=== PATIENT | male | born 1960 | race Caucasian/White ===

== ENCOUNTER 2016-12-25 14:45 | Inpatient (IN) ==
[2016-12-25] MEDS ORDERED: ONDANSETRON 4 MG/2 ML VIAL IV STA (15:49)
[2016-12-25] MEDS ORDERED: SODIUM CHLORIDE 0.9% 1,000 ML IV STA ×2 (15:49→17:17)
[2016-12-25 16:18] LABS: Basophils % 0.6 % (0.0-0.8); Eosinophils % 0.3 % (0.00-10.9); Hematocrit 40.3 VOL% (42.0-52.0); Hemoglobin 14.2 GM/DL (14.0-18.0); Immature Granulocytes % 0.8 %; Immature Granulocytes Absolute 0.03 #; Lymphocytes # 0.6 10*3/uL (1.4-4.0); Lymphocytes % 16.6 % (21.2-54.2); Mean Corpuscular HGB Conc 35.2 GM/DL (32-36); Mean Corpuscular Hemoglobin 34 PG (27-34); Mean Corpuscular Volume 95.5 FL (87-102); Mean Platelet Volume 10.2 FL (9.6-12.0); Monocytes # 0.5 10*3/uL (0.11-0.8); Monocytes % 13.6 % (1.7-12.7); Neutrophils # 2.5 10*3/uL (1.4-7.4); Neutrophils % 68.1 % (38.7-73.9); Platelet Count 98 T/CUMM (130-400); Red Blood Count 4.22 MC/CUMM (3.8-5.5); Red Cell Distribution Width 13.2 % (9.3-17.3); White Blood Count 3.6 T/CUMM (4-12)
--- NOTE | 2016-12-25 16:21 | EKG Report ---
Stationary ECG Study [facility] ER Test Date: 12/25/2016 4:19:29 PM Pat Name: MICHELL STACK Department: Room: 289 Gender: M Air Conditioning Supervisor: : [id number] Requested by: Ravi Price Order Number: [id number] Reading MD: JERSON DIAMOND Intervals [place] Rate: 106 P: 999 TN: 0 QRS: -26 QRSD: 133 T: 15 QT: 377 QTc: 439 Interpretive Statements ATRIAL FIBRILLATION WITH RAPID VENTRICULAR RESPONSE WITH ABERRANT CONDUCTION OR VENTRICULAR PREMATURE COMPLEXES RIGHT BUNDLE BRANCH BLOCK Electronically Signed On 12-27-16 13:59:35 CDT by JERSON DIAMOND [email or web address]
[2016-12-25 16:39] LABS: Albumin 2.8 G/DL (3.4-5.0); Bilirubin,Total 1.7 MG/DL (0.2-1.0); Calcium 8.8 MG/DL (8.5-10.1); Osmolality,Calculated 270.1 MOS/KG (273-304); Potassium 3.9 MMOL/L (3.5-5.1); Total Protein 6.3 G/DL (6.4-8.3)
[2016-12-25 16:47] LABS: Lactic Acid 2.8 MMOL/L (0.4-2.0)
[2016-12-25] MEDS ORDERED: ONDANSETRON 4 MG/2 ML VIAL ONE (16:59)
--- NOTE | 2016-12-25 18:18 | Emergency Department Note ---
I, Molly Ramirez, am scribing for, and in the presence of, Ravi Price Jr., MD 15:49. IAlbert Marvin Jr., MD, personally performed the services described in this documentation, ascribed by Molly Ramirez in my presence, and it is both accurate and complete 818 . Arrival - Arrival Chief Complaint: Non-Specific Stated Complaint: NOT EATING, DEHYDRATED ED Nursing Triage Note: c/o having decrease appetite x 6 months., states he is being followed by dr. marcano and dr. edgar for this complaint., states he has scope and multiple heart test., states the reason he came in today is because it is he feels exhausted., was evaluated by dr. marcano one week ago ., was evaluated dr. edgar apx. 2 weeks ago ., Mode of Arrival: Ambulatory Limitations: No Limitations Source: Patient, Significant other (), RN Notes Reviewed - History of Present Illness HPI Narrative: Pt is a 56 y/o white male presenting to the ED with c/o decreased appetite for 9 months. He confirms that he has no energy, no appetite, he dry heaves, feels weak and dehydrated and his says he passes out upon standing and falls all the time. Pt states that he has been checked numerous times by his [employer]ER and they can't seem to find what is wrong so he came to the ED. Pt denies nausea, vomiting, chills or fever and states that he has gout, HTN, and low potassium. No other complaints or problems stated in the ED. all these problems have been worked up by multiple doctors. Today he is here mostly because he is just not eating and drinking and feels bad. Earlier this week he was told he had hypokalemia and recommended come to the ER but he did not. He increased his oral potassium. He smokes cigarettes and drinks alcohol daily. Onset (ago): month(s) Consistency: constant Allergies/Adverse Reactions: Allergies Allergy/AdvReac Type Severity Reaction Status Date / Time No Known Allergies Allergy Verified 12/25/16 14:54 Home Medications: Home Medications Medication Instructions Recorded Confirmed Type Allopurinol [Zyloprim] 300 mg PO DAILY 12/15/16 12/25/16 History Aspirin [Aspirin EC] 81 mg PO DAILY 12/15/16 12/25/16 History Folic Acid Tab 1 mg PO DAILY 12/15/16 12/25/16 History Gabapentin 600 mg PO TID 12/15/16 12/25/16 History Magnesium Oxide [Magnesium] 400 mg PO TID 12/15/16 12/25/16 History Metoprolol Succinate 25 mg PO DAILY 12/15/16 12/25/16 History Omeprazole 20 mg PO DAILY 12/15/16 12/25/16 History Ondansetron HCl [Zofran] 8 mg PO DAILY 12/15/16 12/25/16 History Potassium Chloride 20 meq PO DAILY 12/15/16 12/25/16 History Zinc 100 mg PO DAILY 12/15/16 12/25/16 History Review of System - Review of System 12 point system: reviewed and no additional remarkable complaints except as stated - Review of System Constitutional: Present: weakness, other (decreased appetite, dehydrated). Absent: chills, fever Respiratory: Present: cough Gastrointestinal: Absent: nausea, vomiting Medical,Surgical,& Family Hx - Medical History Cardio: History of: Hypertension Neurology: No history of: Seizures HEENT: History of: HEENT Problems (polyps on vocal cords-surgery) Rheumatology: History of;: Gout Gastrointestinal: History of: GERD, Hepatitis, Polyps Other: No history of: Anesthesia Reactions, Cancer - Surgical History HEENT Surgeries: Surgical HX of: Eye Surgery (lasic surgery) Abdominal Surgeries: Surgical HX of: Colonoscopy - Family History Family History: Denies;: Family Cancer - Social History Smoking Status: Current every day smoker Frequency of Alcohol Use: Frequently Type of Drug Use: None Marital Status: Lives With:: Spouse Functional capacity: independent ambulation Exam Physical Examination: General: Well-developed well-nourished, no apparent distress. Head: Normocephalic, atraumatic. Eyes: PERRLA, EOMI. Nose: No obvious acute deformities or discharge. Mouth: No obvious acute injury. Dry mucous membranes Neck: Full range of motion without obvious pain. No midline tender to palpation. Lymphatic: no significant lymphadenopathy noted. Lungs: Clear to auscultation bilaterally, normal and equal air movement bilaterally, no obvious rales or wheezing. Heart: regular rhythm, no obvious mummers. Slightly tachycardic Abdomen: Soft nontender, nondistended, normal active bowel sounds. Skin: No obivous acute lesions noted Musculoskeletal: No gross deformities. Neurological: No focal findings, cranial nerves II through XII grossly normal. Psychiatric: Appropriate mood.. : Deferred Vital Signs: Vital Signs Temperature 98.7 F 12/25/16 16:29 Pulse Rate 60 12/25/16 16:29 Respiratory Rate 18 12/25/16 16:29 Blood Pressure 173/78 12/25/16 16:29 O2 Sat by Pulse Oximetry 98 12/25/16 14:47 Course Course Narrative: Differential diagnosis, dehydration, hypokalemia, hiatal hernia, chronic nausea - Reevaluation(s) Reevaluation #1: Patient with renal insufficiency, lactic acidosis, bilirubin and other liver enzymes are elevated. With all of these plus the syncopal episodes I think patient deserves admission. I discussed with the hospitalist service and they accept care for this patient. Time: 18:15 Results - Labs CBC & BMP: 12/25/16 16:09 12/25/16 16:09 Lab Results: I have reviewed the patients labs Labs: Laboratory Tests 12/25/16 16:09 WBC 3.6 L RBC 4.22 Hgb 14.2 Hct 40.3 L MCV 95.5 MCH 34 MCHC 35.2 RDW 13.2 Plt Count 98 L MPV 10.2 Neut % (Auto) 68.1 Lymph % (Auto) 16.6 L Schley % (Auto) 13.6 H Eos % (Auto) 0.3 Baso % (Auto) 0.6 Neut # (Auto) 2.5 Lymph # (Auto) 0.6 L Schley # (Auto) 0.5 Eos # (Auto) 0.0 Baso # (Auto) 0.0 Immature Gran % 0.8 Nucleated RBC % 0.0 Immature Gran # 0.03 Nucleated RBCs # 0.00 Laboratory Tests 12/25/16 12/25/16 16:09 16:09 Sodium 135 L Potassium 3.9 Chloride 95 L Carbon Dioxide 27 Anion Gap 16.9 H BUN 13 Creatinine 1.40 H GFR Calculation 74 BUN/Creatinine Ratio 9.00 Glucose 123 H Calculated Osmolality 270.1 L Calcium 8.8 Total Bilirubin 1.70 H AST 92 H ALT 55 Alkaline Phosphatase 122 H Troponin I < 0.015 Total Protein 6.3 L Albumin 2.8 L Globulin 3.5 Albumin/Globulin Ratio 0.8 L Laboratory Tests 12/25/16 16:09 Lactic Acid 2.8 H - EKG EKG results: interpreted by GLADYS (Heart rate 106, normal sinus rhythm with bigeminy noted. RN had asked the patient about this and patient says this is common in a chronic problem.) Disposition Clinical Impression: Abnormal liver function test, History of progressive weakness, Syncopal episodes, Renal insufficiency, Weakness Case discussed with: patient, patient's family Disposition: Still a Patient Condition: Stable Time of Disposition: 18:18
[2016-12-25] MEDS ORDERED: ZALEPLON 5 MG CAPSULE PO PRN (18:54)
[2016-12-25] MEDS ORDERED: DOCUSATE SODIUM 100 MG CAPSULE PO PRN (18:54)
[2016-12-25] MEDS ORDERED: LACTULOSE 20 GM/30 ML UDCUP PO PRN (18:54)
[2016-12-25] MEDS ORDERED: ONDANSETRON 4 MG/2 ML VIAL IV PRN (18:54)
[2016-12-25] MEDS ORDERED: MORPHINE 2 MG/1 ML SYRINGE IV PRN (18:54)
--- NOTE | 2016-12-25 19:12 | Hospitalist History & Physical ---
Assessment and Plan - Time spent with patient Time spent with patient: Less than 30 minutes (1) Abnormal liver function test Status: Acute Assessment and plan: LFTs performed in the ER coupled with patient's history are suspicious of alcoholic cirrhosis. Patient will be admitted to hospital medicine service for further evaluation treatment. Patient will be started on IV fluids as well as clear liquid diet. Obtain abdominal imaging. We will consult GI for further recommendations. Avoid hepatotoxic agents. Current Visit: Yes (2) Syncopal episodes Status: Acute Current Visit: Yes (3) Renal insufficiency Status: Acute Assessment and plan: Creatinine is 1.4. Patient denies a history of renal problems. This is likely due to dehydration. Will hydrate with gentle IV fluids. Continue to monitor Current Visit: Yes (4) Weakness Status: Acute Assessment and plan: Patient admits to decreased appetite last 2 months. Clear liquid diet. IV fluids. Current Visit: Yes History of Present Illness Chief complaint: decreased appetite, weakness History of present illness: Mr. Sanon is a 56 year old male with a past medical history significant for hypertension, gout, GERD, peripheral neuropathy, tobaccoism and alcoholism who presents to the ED with complaints of decreased appetite and generalized weakness with onset 2 months ago. Patient reports that his appetite has decreased to almost nothing within the last week. He notes that he has been having a decreased appetite for the last 2 months and states that he has lost approximately 30 pounds over that period of time. He also notes that he has been feeling weak and hypotensive with some orthostatic hypotension to the point that he reports falling on several occasions. He does not recall losing consciousness. He notes that he has been followed by Dr. Cunningham who has been keeping up with his liver function test annually, however, he denies any abnormalities in his previous lab work. On admission, the patient was slightly hypertensive, weak and came in via wheelchair. His is at bedside and adds that the patient had been falling out without any significant change in his blood pressure. The patient does admit to drinking "2 drinks" of whiskey per day as well as smoking 1/2-3/4 packs of cigarettes per day. On exam, the patient is alert, oriented and responds to questions appropriately. He denies headache, blurry vision, palpitations, syncopal episodes. However he does admit nausea vomiting with dry heaving, abdominal pain, numbness and tingling in his abdomen as well as his lower extremities. Lab work on admission reveal WBC 3.6, hemoglobin 14.2 hematocrit 40.3, platelet count 98, sodium 135, potassium 3.9, chloride 95, BUN 13, creatinine 1.4, glucose 123, lactic acid 2.8, total bilirubin 1.7, AST 92, ALT 55, alkaline phosphatase 122, albumin 2.8. The patient notes that he was recently seen by Dr. dillon where he had an echo and stress test, and to his knowledge it was negative. He also notes that he had an EGD performed by Dr. Fields earlier this week. According to records, the EGD performed on 12/15/2016 revealed distal esophageal stricture, moderate hiatal hernia, and gastritis. After discussion with Dr. Price as well as Dr. Campo, it was decided that the patient will be admitted to the hospital medicine service for further evaluation and treatment. The patient is listed as a full code. Home Medications Medication Instructions Recorded Confirmed Type Allopurinol [Zyloprim] 300 mg PO DAILY 12/15/16 12/25/16 History Aspirin [Aspirin EC] 81 mg PO DAILY 12/15/16 12/25/16 History Folic Acid Tab 1 mg PO DAILY 12/15/16 12/25/16 History Gabapentin 600 mg PO TID 12/15/16 12/25/16 History Magnesium Oxide [Magnesium] 400 mg PO TID 12/15/16 12/25/16 History Metoprolol Succinate 25 mg PO DAILY 12/15/16 12/25/16 History Omeprazole 20 mg PO DAILY 12/15/16 12/25/16 History Ondansetron HCl [Zofran] 8 mg PO DAILY 12/15/16 12/25/16 History Potassium Chloride 20 meq PO DAILY 12/15/16 12/25/16 History Zinc 100 mg PO DAILY 12/15/16 12/25/16 History Allergies Allergy/AdvReac Type Severity Reaction Status Date / Time No Known Allergies Allergy Verified 12/25/16 14:54 Medical,Surgical,& Family Hx - Medical History Cardio: History of: Hypertension Neurology: No history of: Seizures HEENT: History of: HEENT Problems (polyps on vocal cords-surgery) Rheumatology: History of;: Gout Gastrointestinal: History of: GERD, Hepatitis, Polyps Other: No history of: Anesthesia Reactions, Cancer - Surgical History HEENT Surgeries: Surgical HX of: Eye Surgery (lasic surgery) Abdominal Surgeries: Surgical HX of: Colonoscopy - Family History Family History: Denies;: Family Cancer - Social History Smoking Status: Current every day smoker (One half to three-quarter packs per day) Frequency of Alcohol Use: Frequently (4 shots of whiskey per day) Type of Drug Use: None Marital Status: Lives With:: Spouse Functional capacity: independent ambulation - Constitutional Constitutional: Present: anorexia, fatigue, frequent falls, weakness. Absent: headache(s) - EENT Eyes: Absent: blurry vision, diplopia Ears: Absent: decreased hearing, ear pain Nose, mouth and throat: Absent: headache(s), neck mass - Cardiovascular Cardiovascular: Absent: chest pain at rest, chest pain with activity, edema, radiating jaw, neck or arm pain, orthopnea, palpitations - Respiratory Respiratory: Absent: cough, dyspnea, dyspnea on exertion, wheezing - Gastrointestinal Gastrointestinal: Present: abdominal pain, nausea, vomiting. Absent: diarrhea - Genitourinary Genitourinary: Present: other (Decrease frequency). Absent: difficulty urinating, dysuria - Musculoskeletal Musculoskeletal: Absent: arthralgias, myalgias - Neurological Neurological: Present: frequent falls, numbness, paresthesias, syncope. Absent : abnormal gait - Psychiatric Psychiatric: Absent: anxiety, depression - Endocrine Endocrine: Present: fatigue. Absent: cold intolerance, heat intolerance - Hematologic/Lymphatic Hematologic/Lymphatic: Absent: easy bleeding, easy bruising Exam - Constitutional Vitals: Period Temp Pulse Resp BP Sys/Chase Pulse Ox Last 24 Hr 98.7 F-98.7 F 60-60 18-18 173-173/78-78 98 Exam: General appearance: Obese, no acute distress - Head Head exam: Present: normocephalic, atraumatic - Eye Eye exam: Present: EOMI. Absent: conjunctival injection, nystagmus Pupils: Present: MATI, normal accommodation - ENT ENT exam: Present: normal exam, normal external ear exam - Neck Neck exam: Present: normal inspection. Absent: lymphadenopathy, tenderness, thyromegaly - Respiratory Respiratory exam: Present: clear to auscultation bilaterally. Absent: rales, rhonchi, wheezes - Cardiovascular Cardiovascular exam: Present: Tachycardic absent: carotid bruit, gallop, rubs - GI/Abdominal GI/Abdominal exam: Present: normal bowel sounds. Absent: ascites, distended, mass - Extremities Exam Extremities exam: Present: normal inspection, normal capillary refill. Absent: edema - Back Exam Back exam: Absent: CVA tenderness (L), CVA tenderness (R) - Neurological Exam Neurological exam: Present: alert, oriented X3 - Psychiatric Psychiatric exam: Present: normal affect, normal mood - Skin Skin exam: Present: Jaundiced in appearance, warm, dry Results - Labs CBC & BMP: 12/25/16 16:09 12/25/16 16:09 Lab Results: I have reviewed the past 24 hour labs - EKG EKG results: interpreted by GLADYS
[2016-12-26] MEDS: MAGNESIUM OXIDE 400 MG TABLET PO SCH ×4 (00:04→21:23)
[2016-12-26] MEDS: SODIUM CHLORIDE 0.9% 1,000 ML IV SCH ×4 (00:04→19:04)
[2016-12-26] MEDS: GABAPENTIN 600 MG TABLET PO SCH ×4 (00:04→21:23)
[2016-12-26 04:43] LABS: Basophils % 0.8 % (0.0-0.8); Eosinophils % 0.3 % (0.00-10.9); Hematocrit 39.5 VOL% (42.0-52.0); Hemoglobin 13.8 GM/DL (14.0-18.0); Immature Granulocytes % 0.5 %; Immature Granulocytes Absolute 0.02 #; Lymphocytes # 0.9 10*3/uL (1.4-4.0); Lymphocytes % 22.6 % (21.2-54.2); Mean Corpuscular HGB Conc 34.9 GM/DL (32-36); Mean Corpuscular Hemoglobin 34 PG (27-34); Mean Corpuscular Volume 97.1 FL (87-102); Mean Platelet Volume 10.7 FL (9.6-12.0); Monocytes # 0.5 10*3/uL (0.11-0.8); Monocytes % 11.7 % (1.7-12.7); Neutrophils # 2.5 10*3/uL (1.4-7.4); Neutrophils % 64.1 % (38.7-73.9); Red Blood Count 4.07 MC/CUMM (3.8-5.5); Red Cell Distribution Width 13.3 % (9.3-17.3); White Blood Count 3.9 T/CUMM (4-12)
[2016-12-26 04:45] LABS: Platelet Count 91 T/CUMM (130-400)
[2016-12-26 04:46] LABS: INR 1.2; PT Patient Result 12.7 SECS
[2016-12-26 05:18] LABS: Hypochromasia 2+; Platelet Estimate Decreased
[2016-12-26 05:19] LABS: Albumin 2.5 G/DL (3.4-5.0); Bilirubin,Total 1.6 MG/DL (0.2-1.0); Calcium 8.4 MG/DL (8.5-10.1); Total Protein 5.9 G/DL (6.4-8.3)
[2016-12-26] MEDS ORDERED: OMEPRAZOLE 20 MG CAPSULE PO SCH (09:00)
--- NOTE | 2016-12-26 10:05 | Hospitalist Progress Note ---
Assessment and Plan - Time spent with patient Time spent with patient: Less than 30 minutes (1) Abnormal liver function test Status: Acute Assessment and plan: LFTs performed in the ER coupled with patient's history are suspicious of alcoholic cirrhosis. Patient will be admitted to hospital medicine service for further evaluation treatment. Patient will be started on IV fluids as well as clear liquid diet. Obtain abdominal imaging. We will consult GI for further recommendations. Avoid hepatotoxic agents. 12/26/16 - Continue clear liquid diet and IV fluids. Awaiting results of abdominal US and hepatitis panel. Patient's INR is 1.2. Current Visit: Yes (2) Syncopal episodes Status: Acute Current Visit: Yes (3) Renal insufficiency Status: Acute Assessment and plan: Creatinine is 1.4. Patient denies a history of renal problems. This is likely due to dehydration. Will hydrate with gentle IV fluids. Continue to monitor 12/26/16 - Creatinine 1.3 today. Current Visit: Yes (4) Weakness Status: Acute Assessment and plan: Patient admits to decreased appetite last 2 months. Clear liquid diet. IV fluids. Current Visit: Yes (5) Atrial fibrillation Status: Acute Assessment and plan: Patient on Metoprolol 25 po daily. Unknown if this is chronic. Patient has been seen in the past by Dr. Izquierdo. Has been placed in on telemetry unity. Consider cardiology consult if unable to control rate with beta blockade alone. Current Visit: Yes Hospitalist: Subjective Interval history: Patient seen and examined today. He was awake and alert on exam and has no complaints overnight. He reports that he is feeling slightly better and was able to keep down his breakfast this morning. We are still awaiting ultrasound and hepatitis panel results. GI has been consulted for further eval and recs. Exam - Constitutional Vitals: Period Temp Pulse Resp BP Sys/Chase Pulse Ox Last 24 Hr 97.8 F-99.9 F 60-114 14-20 139-173/78-99 96-99 Exam: General appearance: Obese, no acute distress - Head Head exam: Present: normocephalic, atraumatic - Eye Eye exam: Present: EOMI. Absent: conjunctival injection, nystagmus Pupils: Present: MATI, normal accommodation - ENT ENT exam: Present: normal exam, normal external ear exam - Neck Neck exam: Present: normal inspection. Absent: lymphadenopathy, tenderness, thyromegaly - Respiratory Respiratory exam: Present: clear to auscultation bilaterally. Absent: rales, rhonchi, wheezes - Cardiovascular Cardiovascular exam: Present: Tachycardic absent: carotid bruit, gallop, rubs - GI/Abdominal GI/Abdominal exam: Present: normal bowel sounds. Absent: ascites, distended, mass - Extremities Exam Extremities exam: Present: normal inspection, normal capillary refill. Absent: edema - Back Exam Back exam: Absent: CVA tenderness (L), CVA tenderness (R) - Neurological Exam Neurological exam: Present: alert, oriented X3 - Psychiatric Psychiatric exam: Present: normal affect, normal mood - Skin Skin exam: Present: Jaundiced in appearance, warm, dry Results - Labs CBC & BMP: 12/26/16 03:40 12/26/16 03:40 Lab Results: I have reviewed the past 24 hour labs - EKG EKG shows: atrial fibrillation
--- NOTE | 2016-12-26 10:14 | Gastrointestinal Consult Note ---
Assessment and Plan - Time spent with patient Time spent with patient: Greater than 30 minutes (1) Abnormal liver function test Status: Acute Current Visit: Yes (2) Other specified counseling Status: Acute Current Visit: Yes History of Present Illness History of present illness: Mr. Sanon is a 56 year old male Home Medications Medication Instructions Recorded Confirmed Type Allopurinol [Zyloprim] 300 mg PO DAILY 12/15/16 12/25/16 History Aspirin [Aspirin EC] 81 mg PO DAILY 12/15/16 12/25/16 History Folic Acid Tab 1 mg PO DAILY 12/15/16 12/25/16 History Gabapentin 600 mg PO TID 12/15/16 12/25/16 History Magnesium Oxide [Magnesium] 400 mg PO TID 12/15/16 12/25/16 History Metoprolol Succinate 25 mg PO DAILY 12/15/16 12/25/16 History Omeprazole 20 mg PO DAILY 12/15/16 12/25/16 History Ondansetron HCl [Zofran] 8 mg PO DAILY 12/15/16 12/25/16 History Potassium Chloride 20 meq PO DAILY 12/15/16 12/25/16 History Zinc 100 mg PO DAILY 12/15/16 12/25/16 History Allergies Allergy/AdvReac Type Severity Reaction Status Date / Time No Known Allergies Allergy Verified 12/25/16 14:54 Medical,Surgical,& Family Hx - Medical History Cardio: History of: Hypertension Neurology: No history of: Seizures HEENT: History of: HEENT Problems (polyps on vocal cords-surgery) Rheumatology: History of;: Gout Gastrointestinal: History of: GERD, Hepatitis, Polyps Other: No history of: Anesthesia Reactions, Cancer - Surgical History Cardiac Surgeries: Patient Denies: Femoral-Popliteal Bypass Graft, Cardiac Catheterization, Cardiac Surgery, Carotid Endarterectomy, Internal Defibrillator, Vascular Access Devices Thoracic Surgeries: Patient denies;: Lobectomy Neurologic Surgeries: Patient denies: Neurologic Surgery HEENT Surgeries: Surgical HX of: Eye Surgery (lasic surgery) Patient denies: Carotid Endarterectomy Abdominal Surgeries: Surgical HX of: Colonoscopy Patient denies: Splenectomy Reproductive Surgeries: Patient denies;: Genitourinary Surgery - Family History Family History: Denies;: Family Cancer - Social History Smoking Status: Current every day smoker Frequency of Alcohol Use: Frequently Type of Drug Use: None Exam - Constitutional Vitals: Period Temp Pulse Resp BP Sys/Chase Pulse Ox Last 24 Hr 97.8 F-99.9 F 60-114 14-20 139-173/78-99 96-99 Results - Labs CBC & BMP: 12/26/16 03:40 12/26/16 03:40 Note Addendum: PLEASE NOTE -- automatic citation of patient information is unavoidable in this electronic note. I have made a reasonable effort to review the information cited , but it is not a part of my evaluation, impression, or recommendation unless specifically discussed in the dictated text that follows.~ As well, voice recognition software was used in the creation of this clinical note. Reasonable effort was made to identify and correct gross errors. Despite proofreading, errors in business project analyst may be present, including nonsense verbiage at times. If you encounter such an error, please contact me at for discussion and correction. -- Alma Chief complaint: abnormal liver function tests History of present illness: This is a new patient, a 56-year-old male seen by consultation for evaluation of abnormal liver function tests. The patient is admitted to the telemetry floor under the care of Dr. oV with a primary diagnosis of same. The patient was admitted through the emergency department yesterday with primary complaint of decreased appetite and generalized weakness over the preceding two months. Evaluation at that time revealed elevated liver associated enzymes and acute kidney injury. The patient was admitted and started on crystalloid support. He now reports feeling much better and is developing an appetite. A review of his record reveals regular daily alcohol use and the patient confirms saying, 2-4 servings per day for more than 40 years. He has been told, over the past few years, by his primary care provider that his liver associated enzymes are elevated and that he needs to decrease his drinking. At present, I am dubious as to whether he intends to do so. Patient denies fever, chills, night sweats, rigors, headache, neck pain, visual changes, redness of the eyes, dysphagia, odynophagia, difficulty chewing, chest pain, shortness of breath, hematemesis, melena, proctalgia, constipation, change in bowel pattern generally, dysuria, skin changes, temperature regulation issues, flushing, easy bleeding/bruising, musculoskeletal pain, mental status change, numbness/weakness in the extremities, yellowing of the eyes/skin, cutaneous eruptions, allergies to food or drug, family history of gastrointestinal cancer and colon polyps, and other complaints in general. Review of systems: 12 point review of systems was negative except as documented above. Outpatient medications: allopurinol, aspirin, folic acid, gabapentin, magnesium oxide, metoprolol, omeprazole, Zofran, potassium chloride, zinc Inpatient medications: allopurinol, aspirin, Colace, folic acid, gabapentin, lactulose, magnesium oxide, metoprolol, morphine sulfate, Zofran, Protonix, normal saline, Sonata, zinc Past Medical History: hypertension, vocal cord polyps, gout, GERD, hepatitis, polyps Social history: positive tobacco. Positive alcohol, at least four servings per day ~ Family history: no gastrointestinal cancers Physical examination:~ Vital Signs: Current vital signs reviewed and documented above.~ General Appearance: sitting in bedside chair. Comfortable. No apparent distress. Eating lunch. Head: Normocephalic.~ Neck: Palpation of the neck revealed no abnormalities.~ Eyes: No scleral icterus.~ No scleral injection.~ No conjunctival pallor.~ Oral Cavity: Odor of breath was normal. No drooling was observed. Lips showed no abnormalities. Floor of the mouth showed no abnormalities.~ Pharynx: Oropharynx was normal.~ Lungs: Respiration rhythm and depth was normal.~ Cardiovascular: Heart rate and rhythm were normal. No murmurs were appreciated.~ Abdomen: abdomen was protuberant due to obesity but not distended. Abdominal palpation revealed no tenderness and no hepatosplenomegaly. Ascites was not discovered. Abdominal auscultation revealed positive bowel sounds. Musculoskeletal System: Musculoskeletal system was grossly normal.~ Neurological: level of consciousness was normal. Speech was normal. Skin: General appearance was normal. Color and pigmentation were normal. No skin lesions. ~ Laboratory: white blood count 3.9, hemoglobin 13.8, hematocrit 39.5, platelets 91, INR 1.2, PT 12.7, ALT 44, AST 72, total bilirubin 1.6, albumin 2.5, total protein 5.9, alkaline phosphatase 110 Radiology: where upper quadrant ultrasound, December 01, 2016 -- River is slightly increased in size with increased echogenicity Impressions:~ 1. Elevated liver associated enzymes -- this is almost certainly alcohol- related cellular disease. The patient is also obese and has components of metabolic syndrome. This is likely also contributing to fatty liver. It would be worthwhile to screen for alternative etiologies, as well. I have discussed the importance of alcohol abstinence with the patient and the potential consequence of long-term alcohol related hepatitis. The patient has agreed to take this under advisement but I am dubious as to whether he will alter his habits. He does not appear to be in liver failure at present. The biopsy is probably not indicated at present. I recommend continued supportive care with volume and electrolyte management. I recommend minimization of potentially hepatotoxicity medications to the greatest extent possible. I recommend follow- up in the outpatient gastroenterology clinic at Dr. Fields' discretion. 2. Other specified counseling --~ The patient was seen for greater than 30 minutes.~ The patient was counseled for greater than 50% of this time regarding differential diagnosis, likely diagnosis, diagnostic and therapeutic alternatives, risks/benefits/alternatives of medications and procedures, and plan of care generally.~ The patient expressed understanding and wishes to proceed. Recommendations: -- continued volume and electrolyte management -- alcohol abstinence -- screen for alternative hepatic disease -- healthy weight loss -- thank you for consultation. Dr. Fields will assume G.I. care for this patient tomorrow.
--- NOTE | 2016-12-26 10:46 | Ultrasound Report ---
Exam: US abdomen Date:12/25/2016 7:51 PM Indication: Elevated liver function studies, possible cirrhosis Comparison: Abdomen ultrasound 12/01/2016 Findings: Liver: Diffusely increased hepatic parenchymal echogenicity and coarsened echotexture are noted. There are no focal lesions identified. There is no intrahepatic or extra hepatic biliary ductal dilatation. Portal veins are patent with normal direction of flow. Gallbladder: No stones and no wall thickening. No pericholecystic fluid. Sonographic Castellanos's sign is negative. Stable punctate 3 mm echogenic lesion adjacent to the gallbladder wall may represent a small polyp. CBD: 0.5 cm Pancreas: Not well seen Kidneys Right kidney measures 10.4 x 5.6 x 6 cm. Left kidney measures 10.1 x 4.0 x 4.3 cm. There is no hydronephrosis. No renal lesions are visualized. No perinephric fluid collections are visualized. There is no ascites. Spleen: Not seen IVC is patent. The proximal aorta is nonaneurysmal. Distal aorta is obscured due to overlying bowel gas. Impression: 1. No acute sonographic abnormality in the abdomen. 2. Diffusely increased hepatic parenchymal echogenicity and slightly coarsened echotexture may represent underlying cirrhosis changes. Consider CT abdomen with IV contrast for further evaluation if clinically indicated. PROCEDURE INTERPRETED AT [facility] DEPARTMENT OF RADIOLOGY Final Report Signed by: Ian Bergman
[2016-12-26] MEDS: METOPROLOL SUCCINATE XL 25 MG TABLET PO SCH (12:22)
[2016-12-26] MEDS: ASPIRIN EC 81 MG TABLET PO SCH (12:22)
[2016-12-26] MEDS: ALLOPURINOL 300 MG TABLET PO SCH (14:10)
[2016-12-26] MEDS: ZINC GLUCONATE 50 MG TABLET PO SCH (14:10)
[2016-12-26] MEDS: PANTOPRAZOLE 40 MG TABLET PO SCH (14:10)
[2016-12-26] MEDS: FOLIC ACID 1 MG TABLET PO SCH (14:10)
[2016-12-26 15:01] LABS: Total Protein 5.8 G/DL (6.4-8.3)
[2016-12-27] MEDS: SODIUM CHLORIDE 0.9% 1,000 ML IV SCH ×3 (04:03→19:43)
[2016-12-27 05:07] LABS: Basophils % 0.4 % (0.0-0.8); Eosinophils % 0.6 % (0.00-10.9); Hematocrit 37.3 VOL% (42.0-52.0); Hemoglobin 12.8 GM/DL (14.0-18.0); Immature Granulocytes % 0.2 %; Immature Granulocytes Absolute 0.01 #; Lymphocytes % 20.6 % (21.2-54.2); Mean Corpuscular HGB Conc 34.3 GM/DL (32-36); Mean Corpuscular Hemoglobin 33 PG (27-34); Mean Corpuscular Volume 96.6 FL (87-102); Mean Platelet Volume 10.4 FL (9.6-12.0); Monocytes # 0.5 10*3/uL (0.11-0.8); Monocytes % 9.4 % (1.7-12.7); Neutrophils # 3.4 10*3/uL (1.4-7.4); Neutrophils % 68.8 % (38.7-73.9); Red Blood Count 3.86 MC/CUMM (3.8-5.5); Red Cell Distribution Width 13.5 % (9.3-17.3); White Blood Count 4.9 T/CUMM (4-12)
[2016-12-27 05:15] LABS: Platelet Count 90 T/CUMM (130-400)
[2016-12-27 05:35] LABS: Hypochromasia Slight
[2016-12-27 05:36] LABS: Platelet Estimate Decreased
[2016-12-27 05:43] LABS: Hepatitis B Surface Ag Quant 0.73 Index; Hepatitis B Surface Ag Result Negative (Negative)
[2016-12-27 05:56] LABS: Albumin 2.4 G/DL (3.4-5.0); Bilirubin,Total 1.3 MG/DL (0.2-1.0); Calcium 8.1 MG/DL (8.5-10.1); Total Protein 5.5 G/DL (6.4-8.3)
[2016-12-27 06:08] LABS: Hepatitis A Ab IgM Quant 0.09 Index; Hepatitis A Ab IgM Result Negative (Negative); Hepatitis B Core IgM Result Negative (Negative); Hepatitis C Virus Ab Quant 0.16 Index; Hepatitis C Virus Ab Result Negative (Negative)
[2016-12-27 07:49] LABS: Albumin (SPE) 3.1 G/DL (3.2-5.3); Albumin (SPE) Rel % 53.1 %; Alpha 1 (SPE) 0.2 G/DL (0.1-0.4); Alpha 1 (SPE) Rel % 4.1 %; Alpha 2 (SPE) 0.8 G/DL (0.4-1.0); Alpha 2 (SPE) Rel % 13.2 %; Beta (SPE) 0.7 G/DL (0.5-1.1); Beta (SPE) Rel % 11.8 %; Gamma (SPE) Rel % 17.8 %; Total Protein (Chem) 5.8 G/DL (6.4-8.3)
[2016-12-27] MEDS: METOPROLOL SUCCINATE XL 25 MG TABLET PO SCH (08:30)
[2016-12-27] MEDS: ASPIRIN EC 81 MG TABLET PO SCH (08:32)
[2016-12-27] MEDS: GABAPENTIN 600 MG TABLET PO SCH ×3 (08:32→21:36)
[2016-12-27] MEDS: ALLOPURINOL 300 MG TABLET PO SCH (08:32)
[2016-12-27] MEDS: MAGNESIUM OXIDE 400 MG TABLET PO SCH ×3 (08:32→21:36)
[2016-12-27] MEDS: FOLIC ACID 1 MG TABLET PO SCH (08:32)
[2016-12-27] MEDS: PANTOPRAZOLE 40 MG TABLET PO SCH (08:32)
[2016-12-27] MEDS: ZINC GLUCONATE 50 MG TABLET PO SCH (08:32)
--- NOTE | 2016-12-27 09:37 | Gastrointestinal Progress Note ---
<StefanRamona Keith - Last Filed: 12/27/16 09:31> Assessment and Plan (1) Abnormal liver function test Status: Acute Assessment and plan: 12/27-bilirubin trending downward slightly at 1.3. Ultrasound results noted. Continue complaints of nausea. EGD results from last week noted with path report. No findings of gallbladder disease on scans. Consider HIDA scan tomorrow morning. Plan an addendum to follow by Dr. Fields. Current Visit: Yes Gastroenterology - PN: Subj Interval history: CC: Elevated LFTs Patient seen awake and alert sitting up in bed. States he had an uneventful night. Denies any abdominal pain at this time. He had a gastric in his skin or this morning however he was unable to tolerate eating the eggs and this was canceled. States the only thing that he is able to tolerate at this time is eating small amounts of ice cream. States his last alcohol intake was on . He has a long-term history of alcohol use 40 years with daily intake. No signs of DTs or withdrawal seizures at present time. It is noted that he has a history of elevated LFTs in the past with advisement to stop drinking however patient has not attempted to do so at this time. His primary complaint at this time is nausea and unwarranted weight loss. States that he began trying to lose weight several months ago by cutting back on his daily intake however he is now lost approximately 30 pounds due to complete loss of appetite and nausea when he does attempt to eat. Denies any vomiting episodes. Denies any history of gallbladder disease. Abdominal ultrasound done shows no evidence of cholelithiasis or cholecystitis. Patient is not diabetic. He is noted to have had an EGD done last week by Dr. Fields with only findings of GERD, stricture and gastritis. Biopsy at that time shows chronic superficial gastritis with regenerative mucosal changes and negative for H pylori. Abdomen is soft, nontender. Ultrasound results are also noted to show cirrhotic changes. Bilirubin is down today at 1.3 and AST mildly elevated at 80. Hepatitis panel was negative. ROS: Denies shortness of breath or chest pain Exam (Progress Note) - Constitutional Vitals: Period Temp Pulse Resp BP Sys/Chase Pulse Ox Last 24 Hr 96.9 F-99.6 F 85-105 14-20 138-173/78-94 96-99 General appearance: normal weight, no acute distress - Head Head exam: Present: normal inspection, normocephalic - Eye Eye exam: Present: other (Lids and conjunctive are unremarkable). Absent: scleral icterus - ENT ENT exam: Present: normal exam, normal oropharynx - Neck Neck exam: Present: normal inspection - Respiratory Respiratory exam: Present: clear to auscultation bilaterally. Absent: rales, rhonchi, wheezes - Cardiovascular Cardiovascular exam: Present: regular rate and rhythm. Absent: diastolic murmur , JVD, systolic murmur - GI/Abdominal GI/Abdominal exam: Present: normal bowel sounds, soft. Absent: ascites, distended, mass, organomegaly, tenderness - Extremities Exam Extremities exam: Present: normal inspection, full ROM - Back Exam Back exam: Present: normal inspection - Neurological Exam Neurological exam: Present: alert, oriented X3 - Psychiatric Psychiatric exam: Present: normal affect, normal mood - Skin Skin exam: Present: normal color, warm, dry Results - Labs CBC & BMP: 12/27/16 04:54 12/27/16 04:54 Lab Results: I have reviewed the past 24 hour labs <Scot Fields - Last Filed: 12/27/16 13:10> Exam (Progress Note) - Constitutional Vitals: Period Temp Pulse Resp BP Sys/Chase Pulse Ox Last 24 Hr 96.9 F-99.6 F 85-105 14-20 140-173/78-94 96-99 Results - Labs CBC & BMP: 12/27/16 04:54 12/27/16 04:54
--- NOTE | 2016-12-27 14:08 | Hospitalist Progress Note ---
Assessment and Plan (1) Nausea & vomiting Status: Acute Assessment and plan: 1)alcoholism- encouraged again to stay sober. 2)nausea and vomiting with weight loss- clear liquids and advance as tolerated. HIDA tomorrow. consider tube feeds? 3)obesity-recent 30pound weight loss 4)weakness- he is weak and his knees gave out moving in the room today. consult PT and OT. I suspect he is weak because he has not eaten solid food in a while. 5)LETA- resolved with IVF 6)neuropathy 7)prediabetic- check hgba1c 8)a fib- rate ok. 9)abnormal liver tests- likely from alcohol, hepatitis profile negative. HIDA tomorrow. recent EGD as outpatient with gastritis. SPEP neg. JAMARI neg. Current Visit: Yes (2) Weight loss Status: Acute Current Visit: Yes (3) Abnormal liver function test Status: Acute Current Visit: Yes (4) Renal insufficiency Status: Acute Current Visit: Yes (5) Weakness Status: Acute Current Visit: Yes (6) Atrial fibrillation Status: Acute Current Visit: Yes Hospitalist: Subjective Interval history: Mr Sanon could not eat the eggs for gastric emptying study. When I saw him not long after, he was very concerned that he would be "NPO" for the rest of the day as he was hungry. He was not having nausea at that time. He will have HIDA tomorrow. I coordinated care with DR Fields today. Exam - Constitutional Vitals: Period Temp Pulse Resp BP Sys/Chase Pulse Ox Last 24 Hr 96.9 F-99.6 F 85-105 14-20 140-173/78-94 96-99 General appearance: no acute distress, over weight - Eye Eye exam: Present: EOMI. Absent: scleral icterus Pupils: Present: MATI - Respiratory Respiratory exam: Present: clear to auscultation bilaterally - Cardiovascular Cardiovascular exam: Present: regular rate and rhythm - GI/Abdominal GI/Abdominal exam: Present: normal bowel sounds, soft. Absent: tenderness - Extremities Exam Extremities exam: Absent: edema Results - Labs CBC & BMP: 12/27/16 04:54 12/27/16 04:54 Lab Results: I have reviewed the past 24 hour labs
--- NOTE | 2016-12-27 14:45 | XRay Report ---
History is nausea Mild air scattered throughout the bowel without disproportionate small bowel dilatation or organomegaly seen Small density in the pelvis. A combination of phleboliths and possibly minimal residual contrast in diverticuli Mild scoliosis and degenerative change in the lumbar spine noted Impression: Unremarkable bowel gas pattern PROCEDURE INTERPRETED AT [facility] DEPARTMENT OF RADIOLOGY Final Report Signed by: Dr. Violet Tellez
[2016-12-28] MEDS: SODIUM CHLORIDE 0.9% 1,000 ML IV SCH ×3 (03:37→20:00)
--- NOTE | 2016-12-28 09:41 | Nuclear Medicine Report ---
Referring physician: Karen Wagner MD Exam: Nuclear medicine hepatobiliary scan Date: December 28, 2016 Comparison: Abdomen ultrasound December 26, 2016 Reason: Nausea Technique: The patient was administered 5 mCi of technetium 99m Choletec IV. Images of the right upper quadrant were then acquired over 60 minutes. The patient was then orally administered 8 ounces of Ensure, and gallbladder ejection fraction was calculated. Findings: There is slight delayed uptake of radiotracer by the liver, which could be related to hepatic dysfunction. Please correlate with liver function studies. There appears to be appropriate excretion of radiotracer by the liver. Radiotracer accumulation is seen within the gallbladder at 20 minutes, and radiotracer activity is seen within the bowel at 20 minutes. The patient denied symptoms with ingestion of Ensure. The gallbladder ejection fraction at 20 minutes is 29%, at 40 minutes is 62% and at 60 minutes is 65%. Impression: 1. Radiotracer accumulation is seen within the gallbladder, suggesting patency of the cystic duct. 2. Normal gallbladder ejection fraction. 3. There is mild delayed uptake of radiotracer by the liver. This could reflect hepatic dysfunction. Please correlate with liver function studies. PROCEDURE INTERPRETED AT [facility] DEPARTMENT OF RADIOLOGY Final Report Signed by: Dr. George Mclaughlin
[2016-12-28] MEDS: METOPROLOL SUCCINATE XL 25 MG TABLET PO SCH (09:42)
[2016-12-28] MEDS: GABAPENTIN 600 MG TABLET PO SCH ×3 (09:42→20:42)
--- NOTE | 2016-12-28 09:46 | Gastrointestinal Progress Note ---
<Ramona Aviles - Last Filed: 12/28/16 09:43> Assessment and Plan (1) Abnormal liver function test Status: Acute Assessment and plan: 12/28-HIDA scan results noted. No repeat LFT noted today. Tolerating small amounts of diet. Plan and addendum to follow by Dr Fields. 12/27-bilirubin trending downward slightly at 1.3. Ultrasound results noted. Continue complaints of nausea. EGD results from last week noted with path report. No findings of gallbladder disease on scans. Consider HIDA scan tomorrow morning. Plan an addendum to follow by Dr. Fields. Current Visit: Yes Gastroenterology - PN: Subj Interval history: CC: Elevated LFT, nausea Pt is seen awake and alert following HIDA scan this morning. Results noted to show normal uptake and EF at 65%. He states the nausea is some better today. He is tolerating his diet. No repeat LFTs today. Hgb A1C noted at 5.8. Abdomen is soft, nontender. He is to start physical therapy as well for strength training. ROS: Denies SOB or chest pain Exam (Progress Note) - Constitutional Vitals: Period Temp Pulse Resp BP Sys/Chase Pulse Ox Last 24 Hr 96.8 F-100.2 F 51-108 18-20 127-167/80-92 95-99 General appearance: normal weight, no acute distress - Head Head exam: Present: normal inspection, normocephalic - Eye Eye exam: Present: other (lids and conjunctiva unremarkable). Absent: scleral icterus - ENT ENT exam: Present: normal exam, normal oropharynx - Neck Neck exam: Present: normal inspection - Respiratory Respiratory exam: Present: clear to auscultation bilaterally. Absent: rales, rhonchi, wheezes - Cardiovascular Cardiovascular exam: Present: regular rate and rhythm. Absent: diastolic murmur , JVD, systolic murmur - GI/Abdominal GI/Abdominal exam: Present: normal bowel sounds, soft. Absent: ascites, distended, mass, organomegaly, tenderness - Extremities Exam Extremities exam: Present: normal inspection, full ROM - Back Exam Back exam: Present: normal inspection - Neurological Exam Neurological exam: Present: alert, oriented X3 - Psychiatric Psychiatric exam: Present: normal affect, normal mood - Skin Skin exam: Present: normal color, warm, dry Results - Labs CBC & BMP: 12/27/16 04:54 12/27/16 04:54 Lab Results: I have reviewed the past 24 hour labs <Scot Fields - Last Filed: 12/28/16 18:59> Exam (Progress Note) - Constitutional Vitals: Period Temp Pulse Resp BP Sys/Chase Pulse Ox Last 24 Hr 96.8 F-100.2 F 51-108 18-20 127-156/65-94 95-99 Results - Labs CBC & BMP: 12/27/16 04:54 12/27/16 04:54
[2016-12-28] MEDS: MAGNESIUM OXIDE 400 MG TABLET PO SCH ×3 (12:36→20:45)
[2016-12-28] MEDS: ZINC GLUCONATE 50 MG TABLET PO SCH (12:36)
[2016-12-28] MEDS: ASPIRIN EC 81 MG TABLET PO SCH (12:36)
[2016-12-28] MEDS: ALLOPURINOL 300 MG TABLET PO SCH (12:36)
[2016-12-28] MEDS: PANTOPRAZOLE 40 MG TABLET PO SCH (12:36)
[2016-12-28] MEDS: FOLIC ACID 1 MG TABLET PO SCH (12:39)
[2016-12-28 13:56] LABS: Mitochondrial Antibody (M2) <0.1 U
--- NOTE | 2016-12-28 15:47 | Hospitalist Progress Note ---
Hospitalist: Subjective Interval history: Pt seen this am and was tolerating a full liquid diet. No abd pain, no nausea or vomiting. Last BM yesterday and was without any abd pain, melena or BRBPR. No fever. No dysuria. Exam - Constitutional Vitals: Period Temp Pulse Resp BP Sys/Chase Pulse Ox Last 24 Hr 96.8 F-100.2 F 51-108 18-20 127-167/65-90 95-99 Exam: A and O x 3 RRR no M CTAB nonlabored Soft, proturbanant, +BS, difficult to assess for HSM or masses given body habitus Warm no c/c/e Results - Labs CBC & BMP: 12/27/16 04:54 12/27/16 04:54 - Impressions 1) Nausea & vomiting with weight loss- resolved. May be related to chronic alcohol intake but needs routine CA screening outpt Status: Acute - was unable to tolerate gastric emptying scan. HIDA scan was noted and was essentially unremarkable for GB disease - Advance to soft diet. If tolerates, consider dc in am. 2) Alcoholism- encouraged again to stay sober. Watch for withdrawals 3) Obesity BMI 33- - increased physical activity and recommended dietary modifications 4) Weakness- Cont PT and OT. Check TSH, Vitamin B12 and Vitamin D levels. 5) LETA- resolved with IVF 6) Neuropathy - HgbA1c <6 - Check Vitamin B12 and supplement as needed 7) Afib- rate ok. 8) Abnormal liver tests- likely from alcohol, hepatitis profile negative. HIDA tomorrow. recent EGD as outpatient with gastritis. SPEP neg. JAMARI neg. Autoimmune workup pending Current Visit: Yes 9) Weight loss Status: Acute Current Visit: Yes D/W pt with nurse at bedside. All questions answered.
[2016-12-28 16:28] LABS: Free T4 (Free Thyroxine) 1.05 NG/DL (0.76-1.46); Thyroid Stimulating Hormone 2.12 uIU/ml (0.358-3.74)
[2016-12-28 16:31] LABS: 25 Hydroxy Vitamin D Total 14.3 NG/ML
[2016-12-28] MEDS: THIAMINE 100 MG TABLET PO SCH (20:42)
[2016-12-29] MEDS: SODIUM CHLORIDE 0.9% 1,000 ML IV SCH ×2 (04:27→12:04)
--- NOTE | 2016-12-29 08:30 | CT Report ---
Referring physician: Karen Wagner MD EXAM: CT abdomen and pelvis with contrast DATE: December 29, 2016 COMPARISON: Abdominal ultrasound December 26, 2016, nuclear medicine biliary study December 28, 2016, CT chest April 21, 2009 REASON: Nausea, generalized abdominal pain TECHNIQUE: Axial images of the abdomen and pelvis were obtained after administration of 100 cc of Omnipaque 350 IV contrast. Oral contrast was also administered. Coronal and sagittal reformatted images were also provided. Total DLP is 2003.0 mGy*cm. FINDINGS: Lower thorax: Mild scattered atelectasis is seen within both lower lung zones. ABDOMEN: Liver: There is diffuse decreased attenuation of the liver, consistent with hepatic steatosis. No focal suspicious hepatic lesion is identified. Gallbladder and bile ducts: The gallbladder is unremarkable. No biliary duct dilatation is present. Pancreas: Unremarkable. Spleen: Unremarkable. Adrenals: Unremarkable. Kidneys and ureters: No hydronephrosis or suspicious renal lesion is seen. PELVIS: Bladder: Unremarkable. Reproductive: Unremarkable as visualized. ABDOMEN AND PELVIS: Bowel: There is no evidence of bowel obstruction. A few colonic diverticula are present, but there is no evidence of diverticulitis. The stomach is poorly distended and difficult to evaluate. Appendix: The appendix is unremarkable. Vasculature: The abdominal aorta is normal in size. There is minimal calcified plaque at the arteries. Peritoneum/retroperitoneum: No free air or ascites is seen. There is mild scattered mesenteric edema/fat stranding. There is also perinephric fat stranding bilaterally, which appears symmetric and may be chronic. Lymph nodes: There are a few mildly enlarged lymph nodes within the upper abdomen. A portacaval lymph node on image 58 measures 1.7 cm in short axis diameter. These lymph nodes are similar to the prior CT chest of April 21, 2009. Abdominal/pelvic wall: There is a minimal fat-containing left inguinal hernia. Bones: There is multilevel degenerative change at the spine and mild anterior wedging of the T11 vertebral body, which is likely chronic. There are also remote fractures of the right transverse processes of L1, L2, L3 and L4. A few remote right rib fractures are also present. No acute osseous process is seen. IMPRESSION: 1. Prominent hepatic steatosis. 2. There is mild scattered mesenteric fat stranding/edema. This is nonspecific. There is also perinephric fat stranding bilaterally, which appears symmetric and may be chronic. 3. A few mildly enlarged lymph nodes are seen within the upper abdomen. They are similar to April 21, 2009 and are nonspecific. 4. Colonic diverticulosis without evidence of diverticulitis. 5. Mild atelectasis within both lower lung zones. The CT exam was performed using one or more of the following dose reduction techniques: Automated exposure control and adjustment of the mA and/or kV according to patient size. PROCEDURE INTERPRETED AT [facility] DEPARTMENT OF RADIOLOGY Final Report Signed by: Dr. George Mclaughlin
[2016-12-29] MEDS: PANTOPRAZOLE 40 MG TABLET PO SCH (08:52)
[2016-12-29] MEDS: GABAPENTIN 600 MG TABLET PO SCH (08:52)
[2016-12-29] MEDS: METOPROLOL SUCCINATE XL 25 MG TABLET PO SCH (08:52)
[2016-12-29] MEDS: THIAMINE 100 MG TABLET PO SCH (08:52)
[2016-12-29] MEDS: ASPIRIN EC 81 MG TABLET PO SCH (08:52)
[2016-12-29] MEDS: ALLOPURINOL 300 MG TABLET PO SCH (08:52)
[2016-12-29] MEDS: ZINC GLUCONATE 50 MG TABLET PO SCH (08:53)
[2016-12-29] MEDS: FOLIC ACID 1 MG TABLET PO SCH (08:53)
[2016-12-29] MEDS: MAGNESIUM OXIDE 400 MG TABLET PO SCH (08:53)
[2016-12-29] MEDS ORDERED: MULTIVITAMIN (BEROCCA) TABLET PO SCH (09:00)
--- NOTE | 2016-12-29 10:42 | Gastrointestinal Progress Note ---
<StefanRamona Keith - Last Filed: 12/29/16 10:39> Assessment and Plan (1) Abnormal liver function test Status: Acute Assessment and plan: 12/29-CT scan results noted. Nausea improved. Okay to discharge from GI standpoint. Can schedule gastric emptying scan as outpatient. Plan an addendum to follow by Dr. Fields peer 12/28-HIDA scan results noted. No repeat LFT noted today. Tolerating small amounts of diet. Plan and addendum to follow by Dr Fields. 12/27-bilirubin trending downward slightly at 1.3. Ultrasound results noted. Continue complaints of nausea. EGD results from last week noted with path report. No findings of gallbladder disease on scans. Consider HIDA scan tomorrow morning. Plan an addendum to follow by Dr. Fields. Gastroenterology - PN: Subj Interval history: CC: Abnormal liver test, nausea Patient seen awake alert sitting up in chair. States he had an uneventful night. He denies any abdominal pain, nausea or vomiting at this time. He is able to tolerate his diet without any difficulty. Abdomen soft, nontender. CT of abdomen done on today showed prominent hepatic steatosis, mild scattered mesenteric fat stranding, mildly enlarged lymph nodes in the abdomen which were unchanged from 2009 and colonic diverticulosis. Patient states that he feels he is ready to go home at this point his nausea is improved. He has a follow- up appointment with Dr. Cunningham on Tuesday and at that time if not having improvement in his nausea can discuss scheduling an outpatient gastric emptying scan. ROS: Denies shortness breath or chest pain Exam (Progress Note) - Constitutional Vitals: Period Temp Pulse Resp BP Sys/Chase Pulse Ox Last 24 Hr 97.1 F-99.3 F 88-105 18-20 132-150/65-94 96-99 General appearance: no acute distress, over weight - Head Head exam: Present: normal inspection, normocephalic - Eye Eye exam: Present: other (Lids and conjunctive are unremarkable). Absent: scleral icterus - ENT ENT exam: Present: normal exam, normal oropharynx - Neck Neck exam: Present: normal inspection - Respiratory Respiratory exam: Present: clear to auscultation bilaterally. Absent: rales, rhonchi, wheezes - Cardiovascular Cardiovascular exam: Present: regular rate and rhythm. Absent: diastolic murmur , JVD, systolic murmur - GI/Abdominal GI/Abdominal exam: Present: normal bowel sounds, soft. Absent: ascites, distended, mass, organomegaly, tenderness - Extremities Exam Extremities exam: Present: normal inspection, full ROM - Back Exam Back exam: Present: normal inspection - Neurological Exam Neurological exam: Present: alert, oriented X3 - Psychiatric Psychiatric exam: Present: normal affect, normal mood - Skin Skin exam: Present: normal color, warm, dry Results - Labs CBC & BMP: 12/27/16 04:54 12/27/16 04:54 Lab Results: I have reviewed the past 24 hour labs - Diagnostic Findings Procedure: CT Abdomen and Pelvis: report reviewed by me Specialty Discharge - Follow Up or Referrals Follow up with: Scot Fields MD [Physician] - 1 Month Samir Nayak MD [Primary Care Provider] - 2 Weeks <Scot Fields - Last Filed: 01/03/17 10:46> Results - Labs CBC & BMP: 12/27/16 04:54 12/27/16 04:54
[2016-12-29 11:40] LABS: Smooth Muscle Antibody Negative (Negative)
--- NOTE | 2016-12-29 11:49 | Discharge Summary ---
Hospital Course - Hospital Course Hospital Course: Patient is a 56-year-old male with a history of chronic alcohol use who presented to the hospital with a chief complaint of weakness, nausea, vomiting and weight loss. GI was consulted to assist with his management. He was placed on IV fluids for dehydration and acute renal failure which resolved with hydration. Patient was started on anti-emetics as needed. A gastric emptying scan to rule out gastroparesis was ordered but patient was unable to tolerate the test. GI said they would reorder this outpatient. HIDA scan was done which was essentially unremarkable for gallbladder disease. He was started on a clear diet and advanced as tolerated. For history of alcoholism, patient was encouraged to remain abstinent. He exhibited no symptoms of withdrawal during hospitalization. He also complained of weight loss which could be related to taking his zinc and vitamin supplementation on an empty stomach. Patient was educated on this. TSH and vitamin B12 levels were within normal limits. Vitamin D levels were noted to be low and patient was started on supplementation for this. He was noted to have elevated liver transaminases and a viral hepatitis panel was negative. SPEP was negative as well as JAMARI. An autoimmune workup was sent and results were pending at the time of discharge. Hemoglobin A1c was noted to be less than 6. Patient reported that he had had a recent prostate evaluation as well as a recent colonoscopy for cancer screening. I have encouraged him to follow-up with his primary care doctor for further screening on this. At the time of discharge patient was tolerating a soft diet without any nausea or vomiting or abdominal pain. He was ambulating without difficulty. Once cleared by all consultants patient was discharged home for ongoing care. - Time spent with patient Time with patient DS: Greater than 30 minutes (35 minutes) Diagnosis - Discharge Diagnosis (1) Vitamin D deficiency Status: Acute (2) Abnormal liver function test Status: Acute (3) Atrial fibrillation Status: Chronic (4) Nausea & vomiting Status: Acute (5) Weight loss Status: Acute Specialty Discharge - Follow Up or Referrals Follow up with: Samir Nayak MD [Primary Care Provider] - 2 Weeks Scot Fields MD [Physician] - 1 Month Discharge Plan - Discharge Data Disposition: Disch To Home/Self Care Condition at Discharge: Stable Discharge Diet: heart healthy Activity: resume usual activities as tolerated Contact your physician if you experience:: fever over 101, Difficulty voiding, Redness or swelling, Nausea/Vomiting, Shortness of breath, Bleeding, pain uncontrolled by pain medications - Discharge Medications New Thiamine Tab [Vitamin B1 Tab] 100 mg PO BID #60 tablet Cholecalciferol (Vitamin D3) [Vitamin D3] 2,000 unit PO DAILY W/BREAKFAST # 30 tablet Multivitamin (Berocca) [Berocca] 1 tablet PO DAILY tablet Continue Allopurinol [Zyloprim] 300 mg PO DAILY Aspirin [Aspirin EC] 81 mg PO DAILY Omeprazole 20 mg PO DAILY Folic Acid Tab 1 mg PO DAILY Metoprolol Succinate 25 mg PO DAILY Zinc 100 mg PO DAILY Gabapentin 600 mg PO TID Magnesium Oxide [Magnesium] 400 mg PO TID Discontinued Ondansetron HCl [Zofran] 8 mg PO DAILY Potassium Chloride 20 meq PO DAILY - Follow Up or Referral - Forms/Instructions Exam - Constitutional Vitals: Period Temp Pulse Resp BP Sys/Chase Pulse Ox Last 24 Hr 97.1 F-99.3 F 88-105 18-20 134-150/74-94 97-99 Exam: A and O x 3 RRR no M CTAB nonlabored Soft, proturbanant, +BS, difficult to assess for HSM or masses given body habitus Warm no c/c/e Discharge Results Procedures and tests throughout hospitalization: Pending Orders 12/26/16 14:50 [id number], S Routine Ceruloplasmin Routine Mitochondrial Antibody (M2) Routine Smooth Muscle Antibody Routine Labs on day of discharge: Labs from last 24 hours 12/28/16 12/28/16 12/26/16 Unknown Unknown 14:50 [id number] 176 Vitamin B12 860 25-OH Vitamin D Total 14.3 Free T4 1.05 TSH 3rd Generation 2.120 Anti-Mitochondrial Ab <0.1 Anti-Smooth Muscle Ab Negative DS: Provider Date of admission: 12/25/16 18:53 Primary care physician: Samir Nayak MD Attending physician on admission: Price Campo DO Consults: 12/25/16 18:54 Consult to Physician [CONS] Routine Comment: elevated LFTs/alcoholic cirrhosis Consulting Provider: Scot Fields Consult to Specialist Group: Gastroenterology Person Notified: RITA Date Notified: 12/27/16 Time Notified: 08:00 12/25/16 22:27 Consult to Dietitian [CONS] Routine Reason for Dietitian: Dietary Consult 12/27/16 11:33 Consult to Occupational Therapy [CONS] Routine Reason for Occupational Therapy: Weakness Consult to Physical Therapy [CONS] Routine Reason for Physical Therapy: Weakness Discharging clinician: Karen Wagner MD
[2016-12-29 12:11] VITALS: BP 150/84
[2016-12-30 06:26] LABS: Ceruloplasmin 5 mg/dL (18-36)
== END 2016-12-29 13:30 | disposition home or self-care (01) | DRG 641 ==
LOC: N.ED 14:45 → SUATTDRO 18:53 → N.EDINP 18:53 → N.TELEN 19:55
PROVIDERS: ADMIT Internal Medicine; ATTEND Pediatrics

== ENCOUNTER 2017-01-10 16:25 | Observation (INO) ==
--- NOTE | 2017-01-10 18:41 | CT Report ---
CT head/brain wo con Indication: Weakness. Syncope. CT BRAIN WITHOUT CONTRAST DLP: 1165 mGy*cm. One or more of the following dose reduction techniques was used: Automated exposure control, adjustment of the mA and/or kV according the patient size, or use of iterative reconstruction techniques. Comparison: None. Date of admission: 01/10/2017. Technique: Axial noncontrast CT images of the brain were obtained. Findings: No acute hemorrhage, mass or mass effect. Generalized atrophy and patchy periventricular white matter hypodensity is present throughout both convexities. Cortical lilly-white junction and structures of the basal ganglia are well-defined. No bone lesions are shown. Internal auditory canals are symmetric. Visualized sinuses and mastoid air cells are clear. Impression: No acute intracranial pathology. Generalized atrophy and changes consistent with microvascular disease. PROCEDURE INTERPRETED AT [facility] DEPARTMENT OF RADIOLOGY Final Report Signed by: Tanvir Jimenez M.D.
--- NOTE | 2017-01-10 19:38 | Emergency Department Note ---
IDiana Mantricia, am scribing for, and in the presence of, Junaid Lizama M.D. 18:23. IDl Howard T, M.D., personally performed the services described in this documentation, ascribed by Marcus Ortiz in my presence, and it is both accurate and complete 934 . Arrival - Arrival Chief Complaint: Non-Specific Stated Complaint: passed out/trouble urinating/weakness in legs ED Nursing Triage Note: trouble urinating. having urgency and frequency. went to dr leija office and sent here. also having some trouble with walking over the past few days. pt fell on tuesday has abrasions to knees. Mode of Arrival: Wheelchair Limitations: No Limitations Source: Patient Time Seen by Provider: 01/10/17 17:53 - History of Present Illness HPI Narrative: Pt is a 56 y/o white male arriving to ED with c/o problems urinating that onset 3 days ago. He states that he has not been urinating as much as he has been intaking. He reports that today he urinated one ounce. He states that when he first noticed this, he began to drink more water; however, he states that he has had the same result so he stopped drinking so much water because he was afraid that the water was "building up in him." Pt was just admitted to hospital for leg weakness. He reports no history of kidney or bladder problems. No other complaints were reported to ED. Onset (ago): hour(s) Consistency: constant Allergies/Adverse Reactions: Allergies Allergy/AdvReac Type Severity Reaction Status Date / Time No Known Allergies Allergy Verified 12/25/16 14:54 Home Medications: Home Medications Medication Instructions Recorded Confirmed Type Allopurinol [Zyloprim] 300 mg PO DAILY 12/15/16 01/10/17 History Folic Acid Tab 1 mg PO DAILY 12/15/16 01/10/17 History Gabapentin 600 mg PO DAILY 12/15/16 01/10/17 History Magnesium Oxide [Magnesium] 400 mg PO DAILY 12/15/16 01/10/17 History Metoprolol Succinate 25 mg PO DAILY 12/15/16 01/10/17 History Cholecalciferol [Vitamin D3] 1,000 unit PO DAILY 01/10/17 01/10/17 History Ondansetron Tab [Zofran Tab] 4 mg PO Q8H PRN 01/10/17 01/10/17 History Potassium Chloride 20 meq PO DAILY 01/10/17 01/10/17 History Review of System - Review of System 12 point system: reviewed and no additional remarkable complaints except as stated - Review of System Constitutional: Absent: chills, diaphoresis Head/Ears/Nose/Throat: Absent: earache Respiratory: Absent: cough Gastrointestinal: Absent: abdominal pain, nausea, vomiting, diarrhea Genitourinary male: Present: urgency, frequency, other (problems urinating) Musculoskeletal: Present: other (LE weakness bilat) Medical,Surgical,& Family Hx - Medical History Cardio: History of: Hypertension Neurology: No history of: Seizures HEENT: History of: HEENT Problems (polyps on vocal cords-surgery) Rheumatology: History of;: Gout Gastrointestinal: History of: GERD, Hepatitis, Polyps Other: No history of: Anesthesia Reactions, Cancer - Surgical History Cardiac Surgeries: Patient Denies: Femoral-Popliteal Bypass Graft, Cardiac Catheterization, Cardiac Surgery, Carotid Endarterectomy, Internal Defibrillator, Vascular Access Devices Thoracic Surgeries: Patient denies;: Lobectomy Neurologic Surgeries: Patient denies: Neurologic Surgery HEENT Surgeries: Surgical HX of: Eye Surgery (lasic surgery) Patient denies: Carotid Endarterectomy Abdominal Surgeries: Surgical HX of: Colonoscopy Patient denies: Splenectomy Reproductive Surgeries: Patient denies;: Genitourinary Surgery - Family History Family History: Denies;: Family Cancer - Social History Smoking Status: Current every day smoker Exam Vital Signs: Vital Signs Temperature 98.7 F 01/10/17 17:54 Pulse Rate 104 H 01/10/17 18:40 Respiratory Rate 20 01/10/17 18:40 Blood Pressure 139/100 01/10/17 18:40 O2 Sat by Pulse Oximetry 99 01/10/17 16:39 - General General appearance: alert, in no apparent distress - Head Head exam: Present: atraumatic, normocephalic, normal inspection - Eye Eye exam: Present: normal appearance, PERRL, EOMI - ENT ENT exam: Present: normal exam, normal oropharynx, mucous membranes moist, TM's normal bilaterally, normal external ear exam - Neck Neck exam: Present: normal inspection, full ROM, trachea midline. Absent: tenderness - Chest Chest inspection: Present: normal inspection, symmetric chest wall rise. Absent : tenderness - Respiratory Respiratory exam: Present: normal lung sounds bilaterally - Cardiovascular Cardiovascular exam: Present: regular rate, normal rhythm, normal heart sounds - Abdominal Exam Abdominal exam: Present: soft, normal bowel sounds. Absent: distention, tenderness, guarding, rebound - Extremities Exam Extremities exam: Present: full ROM, normal capillary refill, other (abrasions to knees bilat s/p fall). Absent: tenderness - Back Exam Back exam: Present: normal inspection, full ROM. Absent: tenderness - Neurological Exam Neurological exam: Present: alert, oriented X3, CN II-XII intact, normal gait - Psychiatric Psychiatric exam: Present: normal affect, normal mood Course Course Narrative: Medical decision making: Day history of weakness, possible syncopal episodes, and questionable bladder or voiding difficulties, etiology unclear may be neurologic and so we discussed with hospitalist service who agreed to admit overnight for probable MRI and neurology consultation in the morning. Results - Diagnostic Findings Procedure: CT: report reviewed by me (Head: No acute intracranial pathology. Generalized atrophy and changes consistent with microvascular disease. ) Disposition Clinical Impression: Weakness, Syncopal episodes Case discussed with: patient, patient's family Disposition: Still a Patient Condition: Stable Time of Disposition: 19:38
[2017-01-10] MEDS ORDERED: ACETAMINOPHEN 325 MG TABLET PO PRN (19:53)
[2017-01-10] MEDS ORDERED: ONDANSETRON 4 MG TABLET PO PRN (19:59)
--- NOTE | 2017-01-10 20:12 | Hospitalist History & Physical ---
Assessment and Plan (1) Weakness Status: Acute Current Visit: Yes (2) Abnormal liver function test Status: Acute Current Visit: No (3) History of progressive weakness Status: Acute Assessment and plan: Plan for this patient will be admission to our service. Patient will be placed on a monitored. Get MRI of his brain and consult Dr. Herve Treviño. Get physical therapy to evaluate the patient. Get wound care to look at his knees and make recommendations. I will start him on some p.o. Keflex for the knee wound. Continue other home meds as appropriate. Patient would benefit from a magnesium rider. Repeat labs in the morning and adjust plans as appropriate. Current Visit: No History of Present Illness Chief complaint: Lower extremity weakness History of present illness: Mr. Sanon is a 56 year old male with past medical history significant for hypertension gout neuropathy presents as a transfer from Dr. Cunningham's office. Patient went to Dr. Cunningham's office today with a complaint of decreased urine output. He had labs drawn but then Dr. Cunningham noted that he was weaker than previous before. Apparently patient has spent several days in the hospital about 2 weeks ago. He had never regained his strength after being discharged from the hospital. He thought he was improving a little bit last week but then the weakness came back on of his lower extremities. Patient fell recently and skin both his knees. He has developed a mild infection at that site. I was consulted to admit the patient Home Medications Medication Instructions Recorded Confirmed Type Allopurinol [Zyloprim] 300 mg PO DAILY 12/15/16 01/10/17 History Folic Acid Tab 1 mg PO DAILY 12/15/16 01/10/17 History Gabapentin 600 mg PO DAILY 12/15/16 01/10/17 History Magnesium Oxide [Magnesium] 400 mg PO DAILY 12/15/16 01/10/17 History Metoprolol Succinate 25 mg PO DAILY 12/15/16 01/10/17 History Cholecalciferol [Vitamin D3] 1,000 unit PO DAILY 01/10/17 01/10/17 History Ondansetron Tab [Zofran Tab] 4 mg PO Q8H PRN 01/10/17 01/10/17 History Potassium Chloride 20 meq PO DAILY 01/10/17 01/10/17 History Allergies Allergy/AdvReac Type Severity Reaction Status Date / Time No Known Allergies Allergy Verified 12/25/16 14:54 Medical,Surgical,& Family Hx - Medical History Cardio: History of: Hypertension Neurology: No history of: Seizures HEENT: History of: HEENT Problems (polyps on vocal cords-surgery) Rheumatology: History of;: Gout Gastrointestinal: History of: GERD, Hepatitis, Polyps Other: No history of: Anesthesia Reactions, Cancer - Surgical History Cardiac Surgeries: Patient Denies: Femoral-Popliteal Bypass Graft, Cardiac Catheterization, Cardiac Surgery, Carotid Endarterectomy, Internal Defibrillator, Vascular Access Devices Thoracic Surgeries: Patient denies;: Lobectomy Neurologic Surgeries: Patient denies: Neurologic Surgery HEENT Surgeries: Surgical HX of: Eye Surgery (lasic surgery) Patient denies: Carotid Endarterectomy Abdominal Surgeries: Surgical HX of: Colonoscopy Patient denies: Splenectomy Reproductive Surgeries: Patient denies;: Genitourinary Surgery - Family History Family History: Denies;: Family Cancer - Social History Smoking Status: Current every day smoker Frequency of Alcohol Use: None Type of Drug Use: None 12 point system: reviewed and no additional remarkable complaints except as stated Exam - Constitutional Vitals: Period Temp Pulse Resp BP Sys/Chase Pulse Ox Last 24 Hr 98.7 F-98.7 F 101-104 20-20 139-155/100-111 99 General appearance: over weight - Head Head exam: Present: normal inspection - Eye Eye exam: Present: EOMI Pupils: Present: MATI - ENT ENT exam: Present: normal exam - Neck Neck exam: Present: normal inspection - Respiratory Respiratory exam: Present: clear to auscultation bilaterally - Cardiovascular Cardiovascular exam: Present: regular rate and rhythm - GI/Abdominal GI/Abdominal exam: Present: normal bowel sounds - Extremities Exam Extremities exam: Present: normal inspection - Back Exam Back exam: Present: normal inspection - Neurological Exam Neurological exam: Present: alert, oriented X3, other (Patient does have some lower extremity weakness more pronounced on the right lower extremity per my exam) - Psychiatric Psychiatric exam: Present: normal affect, normal mood - Skin Skin exam: Present: normal color Results - Labs Labs: Labs from Dr. Cunningham's office displayed negative nitrites negative leukocyte esterase on the UA magnesium of 1.53 white count 5.39 hemoglobin 12.8 hematocrit 39.4 platelets 246 glucose 127 BUN 11 creatinine 1.21 sodium 134 potassium 4.4 chloride 98 bicarb 29 calcium 8.6 total protein 6.2 albumin 3.1 total bili 1.1 AST 60 ALT 29 alk phos 73
[2017-01-10] MEDS ORDERED: MAGNESIUM SULF RIDER 2 GM in PREMIX 1 EACH IV ONE (20:28)
[2017-01-10 20:33] LABS: Risk Ratio 4.45; VLDL CHOLESTEROL 33.6 MG/DL
[2017-01-10] MEDS: SODIUM CHLORIDE 0.9% 1,000 ML IV SCH (20:42)
[2017-01-10] MEDS ORDERED: ENOXAPARIN 40 MG/0.4 ML SYRINGE SUBCUT SCH (21:00)
[2017-01-10] MEDS: cephALEXin 500 MG CAPSULE PO SCH (22:25)
[2017-01-11] MEDS: cephALEXin 500 MG CAPSULE PO SCH ×2 (05:35→15:38)
[2017-01-11 06:06] LABS: Basophils % 0.4 % (0.0-0.8); Eosinophils # 0.1 10*3/uL (0.0-0.87); Eosinophils % 1.1 % (0.00-10.9); Hematocrit 35.3 VOL% (42.0-52.0); Immature Granulocytes % 0.6 %; Immature Granulocytes Absolute 0.04 #; Lymphocytes # 1.2 10*3/uL (1.4-4.0); Lymphocytes % 16.3 % (21.2-54.2); Mean Corpuscular Hemoglobin 33 PG (27-34); Mean Corpuscular Volume 95.9 FL (87-102); Monocytes # 0.4 10*3/uL (0.11-0.8); Monocytes % 6.1 % (1.7-12.7); Neutrophils # 5.4 10*3/uL (1.4-7.4); Neutrophils % 75.5 % (38.7-73.9); Platelet Count 206 T/CUMM (130-400); Red Blood Count 3.68 MC/CUMM (3.8-5.5); Red Cell Distribution Width 13.2 % (9.3-17.3); White Blood Count 7.1 T/CUMM (4-12)
[2017-01-11 06:55] LABS: Albumin 2.6 G/DL (3.4-5.0); Bilirubin,Total 0.7 MG/DL (0.2-1.0); Calcium 8.5 MG/DL (8.5-10.1); Potassium 4.1 MMOL/L (3.5-5.1); Total Protein 5.8 G/DL (6.4-8.3)
[2017-01-11] MEDS ORDERED: FOLIC ACID 1 MG TABLET PO SCH (09:00)
[2017-01-11] MEDS ORDERED: ALLOPURINOL 300 MG TABLET PO SCH (09:00)
[2017-01-11] MEDS ORDERED: MAGNESIUM OXIDE 400 MG TABLET PO SCH (09:00)
[2017-01-11] MEDS ORDERED: CHOLECALCIFEROL 1,000 UNIT TABLET PO SCH (09:00)
[2017-01-11] MEDS ORDERED: GABAPENTIN 600 MG TABLET PO SCH (09:00)
[2017-01-11] MEDS ORDERED: METOPROLOL SUCCINATE XL 25 MG TABLET PO SCH (09:00)
[2017-01-11] MEDS ORDERED: PANTOPRAZOLE 40 MG TABLET PO SCH (09:00)
[2017-01-11] MEDS ORDERED: POTASSIUM CHLORIDE 20 MEQ TABLET PO SCH (09:00)
--- NOTE | 2017-01-11 12:40 | Magnetic Resonance Report ---
MRI brain without contrast Indication: Weakness, syncope Comparison: CT 10 January 2017 Technique: Axial sagittal and coronal imaging of the brain is performed without contrast. T1, T2, FLAIR and diffusion weighted sequences are performed. Findings: No evidence of restricted diffusion seen. No evidence of intracranial hemorrhage, mass, mass effect or midline shift is seen. There is moderate diffuse cerebral atrophy. Few scattered foci of white matter T2 signal hyperintensity are present in both cerebral hemispheres, periventricular and subcortical location. Remaining brain parenchyma has normal signal and differentiation. The ventricles and cisterns are appropriate in caliber. Posterior fossa, mid brain and pituitary gland appear within normal limits. No evidence of cranial or skull base abnormality seen. Impression: Moderate diffuse cerebral atrophy. Foci white matter T2 signal hyperintensity, nonspecific in appearance can be seen with migraine headaches, diabetes, vasculitis, chronic microvascular changes, demyelinating disease among other entities. PROCEDURE INTERPRETED AT [facility] DEPARTMENT OF RADIOLOGY Final Report Signed by: Dr. Jacinto Crum
[2017-01-11 12:56] VITALS: BP 133/87
--- NOTE | 2017-01-11 13:42 | Neurology Consult Note ---
History of Present Illness History of present illness: Mr. Sanon is a 56 year old right-handed white gentleman with past medical history significant for hypertension gout neuropathy admitted to [facility] directly from Dr. Nayak's office. Patient went to see PCP yesterday with a complaint of decreased urine output. He had labs drawn but then Dr. Nayak noted that he was weaker than previous before. Apparently patient has spent several days in the hospital about 2 weeks ago. He had never regained his strength after being discharged from the hospital. He thought he was improving a little bit last week but then the weakness came back on of his lower extremities. Patient fell recently and skin both his knees. He has developed a mild infection at that site. He underwent MRI of the brain which reveals no acute abnormalities Home Medications Medication Instructions Recorded Confirmed Type Allopurinol [Zyloprim] 300 mg PO DAILY 12/15/16 01/10/17 History Folic Acid Tab 1 mg PO DAILY 12/15/16 01/10/17 History Gabapentin 150 mg PO DAILY 12/15/16 01/10/17 History Magnesium Oxide [Magnesium] 400 mg PO DAILY 12/15/16 01/10/17 History Metoprolol Succinate 25 mg PO DAILY 12/15/16 01/10/17 History Cholecalciferol [Vitamin D3] 2,000 unit PO DAILY 01/10/17 01/10/17 History Ondansetron Tab [Zofran Tab] 4 mg PO Q8H PRN 01/10/17 01/10/17 History Potassium Chloride 20 meq PO DAILY 01/10/17 01/10/17 History Allergies Allergy/AdvReac Type Severity Reaction Status Date / Time No Known Allergies Allergy Verified 12/25/16 14:54 12 point system: reviewed and no additional remarkable complaints except as stated Medical,Surgical,& Family Hx - Medical History Cardio: History of: Hypertension Psychological: No history of: Anxiety Disorders, ADHD, Behavior Problems, Bipolar Disorder, Depression, Previous Suicide Attempt, Psychiatric/Substance Abuse Tx, Schizophrenia, Violent Behavior, Psychiatric Problems Neurology: No history of: Seizures HEENT: History of: HEENT Problems (polyps on vocal cords-surgery) Rheumatology: History of;: Gout Genitourinary: History of: Problems (difficulty urinating) Gastrointestinal: History of: GERD, Hepatitis, Polyps Other: No history of: Anesthesia Reactions, Cancer - Surgical History Cardiac Surgeries: Patient Denies: Femoral-Popliteal Bypass Graft, Cardiac Catheterization, Cardiac Surgery, Carotid Endarterectomy, Internal Defibrillator, Vascular Access Devices Thoracic Surgeries: Patient denies;: Lobectomy Neurologic Surgeries: Patient denies: Neurologic Surgery HEENT Surgeries: Surgical HX of: Eye Surgery (lasic surgery) Patient denies: Carotid Endarterectomy Abdominal Surgeries: Surgical HX of: Colonoscopy Patient denies: Splenectomy Reproductive Surgeries: Patient denies;: Genitourinary Surgery - Family History Family History: Denies;: Family Cancer - Social History Smoking Status: Current every day smoker Frequency of Alcohol Use: None Type of Drug Use: None Exam - Constitutional Vitals: Period Temp Pulse Resp BP Sys/Chase Pulse Ox Last 24 Hr 97.1 F-99.5 F 64-107 16-98 133-155/80-111 95-99 Exam: GENERAL: Patient is in no acute distress. NECK: Neck is supple. There is no JVD. No carotid bruits present. No thyroid masses. CVS: First and second heart sounds are normal. There is no S3 present. Regular rate and rhythm. RESPIRATORY: Lungs are clear to auscultation without any rales or rhonchi. ABDOMEN: Soft and non-tender. Bowel sounds are present. There is no hepatosplenomegaly. EXT: There is no palpable edema. Peripheral pulses are present. Skin: No rashes Central Nervous system: General: Alert, awake and Oriented x 3 Speech: Fluent Comprehension: Intact and normal Facial expressions: Normal Cranial Nerves: CN1/Olfactory: Normal CN II/ Optic: Normal, Visual [place] unreliable CN III, and : MATI & EOMI CN V: Normal & intact CN VII: face is symmetric CNVIII: Normal CN XI/X/XI/XII: Intact and Normal Motor: Bulk and Tone is normal. Strength in the right 5/5 Strength in the left 5/5 Sensory: Grossly intact for all the modalities of PP, LT and temp sense Reflexes: 1+ and symmetrical Cerebellar function: Normal finger to nose and heel to hyde testing. Toes: Equivocal Gait: Able to get up and walk with the help of a rolling walker. Results - Labs CBC & BMP: 01/11/17 04:56 01/11/17 04:55 Assessment and Plan (1) Muscular deconditioning Status: Acute Assessment and plan: This is likely muscle deconditioning due to prolonged illness. No evidence of stroke, TIAs, epilepsy, seizures or evidence of Guillain-Root syndrome. Recommend intense PT and OT as an outpatient. No further neurological intervention needed from neuro standpoint Sign off please call as needed Current Visit: Yes
[2017-01-11] MEDS ORDERED: BACITRACIN OINT 0.9 GM PACK TOP SCH (14:00)
--- NOTE | 2017-01-11 14:27 | Discharge Summary ---
Hospital Course - Hospital Course Hospital Course: Mr. Sanon was admitted for evaluation of weakness. He also states he has been having decreased urine output. Labs were sent from his outpatient clinic where he was evaluated by his primary care provider. This indicated low magnesium level of 1.53 addition to a relatively normal urinalysis. Hepatic function was also tested and was unremarkable. Creatinine was normal. Patient had bladder scans performed in the hospital which revealed normal bladder function. MRI of his brain revealed no acute abnormality. He is evaluated by neurology and cleared for discharge from a neurological standpoint. Patient was walking up and down the hallway and actually going outside to smoke cigarettes. He was ready for discharge. By discharge she had met maximum benefit of hospitalization. I spent 32 minutes coordinating this discharge. With regard to the patient's scraping of his knees he will continue Keflex as an outpatient. - Time spent with patient Time with patient DS: Greater than 30 minutes Discharge Plan - Discharge Data Disposition: Disch To Home/Self Care Condition at Discharge: Stable Discharge Diet: advance to your usual diet Activity: resume usual activities as tolerated Hygiene: no restrictions - Discharge Medications New cephALEXin [Keflex] 500 mg PO Q8HR #15 capsule Continue Allopurinol [Zyloprim] 300 mg PO DAILY Folic Acid Tab 1 mg PO DAILY Metoprolol Succinate 25 mg PO DAILY Potassium Chloride 20 meq PO DAILY Gabapentin 150 mg PO DAILY Magnesium Oxide [Magnesium] 400 mg PO DAILY Cholecalciferol [Vitamin D3] 2,000 unit PO DAILY Ondansetron Tab [Zofran Tab] 4 mg PO Q8H PRN PRN Reason: Nausea - Follow Up or Referral - Forms/Instructions Exam - Constitutional Vitals: Period Temp Pulse Resp BP Sys/Chase Pulse Ox Last 24 Hr 97.1 F-99.5 F 64-107 16-98 133-155/80-111 95-99 Discharge Results Labs on day of discharge: Labs from last 24 hours 01/11/17 01/11/17 01/11/17 04:56 04:56 04:55 WBC 7.1 RBC 3.68 L Hgb 12.0 L Hct 35.3 L MCV 95.9 MCH 33 MCHC 34.0 RDW 13.2 Plt Count 206 MPV 11.0 Neut % (Auto) 75.5 H Lymph % (Auto) 16.3 L Newton % (Auto) 6.1 Eos % (Auto) 1.1 Baso % (Auto) 0.4 Neut # (Auto) 5.4 Lymph # (Auto) 1.2 L Newton # (Auto) 0.4 Eos # (Auto) 0.1 Baso # (Auto) 0.0 Immature Gran % 0.6 Nucleated RBC % 0.0 Immature Gran # 0.04 Nucleated RBCs # 0.00 Sodium 136 Potassium 4.1 Chloride 100 Carbon Dioxide 28 Anion Gap 12.1 BUN 9 Creatinine 1.10 GFR Calculation 98 BUN/Creatinine Ratio 8.00 Glucose 83 Hemoglobin A1c Calculated Osmolality 269.0 L Calcium 8.5 Magnesium 2.2 Total Bilirubin 0.70 AST 78 H ALT 39 Alkaline Phosphatase 77 Total Protein 5.8 L Albumin 2.6 L Globulin 3.2 Albumin/Globulin Ratio 0.8 L Triglycerides Cholesterol LDL Cholesterol VLDL Cholesterol HDL Cholesterol Heart Disease Risk Ratio 01/10/17 01/10/17 19:53 19:53 WBC RBC Hgb Hct MCV MCH MCHC RDW Plt Count MPV Neut % (Auto) Lymph % (Auto) Newton % (Auto) Eos % (Auto) Baso % (Auto) Neut # (Auto) Lymph # (Auto) Newton # (Auto) Eos # (Auto) Baso # (Auto) Immature Gran % Nucleated RBC % Immature Gran # Nucleated RBCs # Sodium Potassium Chloride Carbon Dioxide Anion Gap BUN Creatinine GFR Calculation BUN/Creatinine Ratio Glucose Hemoglobin A1c 5.9 Calculated Osmolality Calcium Magnesium Total Bilirubin AST ALT Alkaline Phosphatase Total Protein Albumin Globulin Albumin/Globulin Ratio Triglycerides 168 H Cholesterol 129 LDL Cholesterol 83.0 VLDL Cholesterol 33.6 HDL Cholesterol 29 L Heart Disease Risk Ratio 4.45 DS: Provider Date of admission: 01/10/17 19:53 Primary care physician: Samir Nayak MD Attending physician on admission: Tanvir Mallory MD Consults: 01/10/17 19:54 Consult to Physical Therapy [CONS] Routine Reason for Physical Therapy: Evaluate and Treat Consult Comment: stroke 01/10/17 19:57 Consult to Physician [CONS] Routine Comment: Consulting Provider: Ryan Devine Consult to Specialist Group: Neurology When should Consulting Provider be notified: In am Person Notified: Payal Date Notified: 01/11/17 Time Notified: 10:10 Consult Notification Comment: 01/10/17 20:28 Consult to Wound Care - [place] [CONS] Routine Reason for Wound Care: Wound Care Management Consult Comment: knee wound recomendation 01/10/17 21:57 Consult to Dietitian [CONS] Routine Reason for Dietitian: Other Discharging clinician: Rosie Whitaker MD Expected date of discharge: 01/11/17
[2017-01-11] MEDS: SODIUM CHLORIDE 0.9% 1,000 ML IV SCH (15:38)
== END 2017-01-11 16:00 | disposition home or self-care (01) ==
LOC: N.ED 16:25 → N.EDINP 16:25 → SUATTDRO 19:53 → N.5E 20:28
PROVIDERS: ADMIT Internal Medicine; ATTEND Internal Medicine

== ENCOUNTER 2020-04-14 08:44 | Inpatient (IN) ==
[2020-04-14] MEDS ORDERED: MORPHINE 4 MG/1 ML VIAL IV STA (10:15)
[2020-04-14] MEDS ORDERED: ONDANSETRON 4 MG/2 ML VIAL IV ONE (10:15)
[2020-04-14 11:27] LABS: Bacteria,Urine Occasional /HPF (Few); Bilirubin,Urine Negative (Negative); Blood, Urine Small mg/dL (Negative); Glucose,Urine (UA) Negative (Negative); Ketones,Urine Negative (Negative); Mucus,Urine Occasional /LPF (Occasional); Nitrite,Urine Negative (Negative); Protein,Urine >=500 MG/DL; RBC,Urine 3 /HPF (0-4); Squamous Epithelial Cell,Urine Occasional /HPF (0-10); Urine Appearance CLEAR (Clear); Urine Color Yellow (Yellow); Urine Specific Gravity 1.014 (1.001-1.035); Urine Urobilinogen < 2.0 EU/DL (0.2-1.0); WBC,Urine 1 /HPF (0-6)
[2020-04-14 12:21] LABS: Basophils # 0.1 10*3/uL (0.0-0.2); Basophils % 0.3 % (0.0-0.8); Eosinophils # 0.3 10*3/uL (0.0-0.87); Eosinophils % 1.8 % (0.00-10.9); Hematocrit 30.1 VOL% (42.0-52.0); Immature Granulocytes % 1.4 %; Immature Granulocytes Absolute 0.25 #; Lymphocytes % 5.9 % (21.2-54.2); Mean Corpuscular HGB Conc 33.2 GM/DL (32-36); Mean Corpuscular Volume 108.7 FL (87-102); Mean Platelet Volume 8.9 FL (9.6-12.0); Monocytes % 3.9 % (1.7-12.7); Neutrophils % 86.7 % (38.7-73.9); Platelet Count 293 T/CUMM (130-400); Red Blood Count 2.77 MC/CUMM (3.8-5.5); Red Cell Distribution Width 13.2 % (9.3-17.3); White Blood Count 17.5 T/CUMM (4-12)
[2020-04-14 12:37] LABS: Albumin 2.3 G/DL (3.4-5.0); Bilirubin,Total 0.5 MG/DL (0.2-1.0); Calcium 9.1 MG/DL (8.5-10.1); Osmolality,Calculated 289.7 MOS/KG (273-304); Total Protein 6.9 G/DL (6.4-8.3)
[2020-04-14] MEDS ORDERED: CLINDAMYCIN INJ 900 MG in PREMIX 1 EACH IV STA (14:03)
[2020-04-14] MEDS ORDERED: CLINDAMYCIN INJ 50 ML IV ONE (14:23)
[2020-04-14] MEDS ORDERED: DEXTROSE 50% 25 GM/50 ML VIAL IV PRN ×2 (14:56)
[2020-04-14] MEDS ORDERED: DOCUSATE SODIUM 100 MG CAPSULE PO PRN (14:56)
[2020-04-14] MEDS ORDERED: NICOTINE 21 MG/24 HR PATCH TRANSDERM PRN (14:56)
[2020-04-14] MEDS ORDERED: GLUCAGON 1 MG VIAL IM PRN (14:56)
[2020-04-14] MEDS ORDERED: ONDANSETRON 4 MG/2 ML VIAL IV PRN (14:56)
[2020-04-14] MEDS ORDERED: hydrALAZINE 20 MG/1 ML VIAL IV PRN (14:56)
[2020-04-14] MEDS ORDERED: ENOXAPARIN 40 MG/0.4 ML SYRINGE SUBCUT SCH (15:00)
[2020-04-14] MEDS ORDERED: SODIUM CHLORIDE 0.9% 1,000 ML IV STA (15:09)
[2020-04-14] MEDS ORDERED: chlordiazePOXIDE 10 MG CAPSULE PO PRN (16:04)
[2020-04-14] MEDS ORDERED: LORazepam 2 MG/1 ML VIAL IV PRN (16:07)
[2020-04-14 16:20] LABS: Risk Ratio 1.38; Thyroid Stimulating Hormone 1.59 uIU/ml (0.358-3.74); VLDL CHOLESTEROL 15.2 MG/DL
[2020-04-14] MEDS ORDERED: CHLORHEXIDINE 4% SOLN 118 ML BOTTLE TOP ONE (16:50)
[2020-04-14] MEDS ORDERED: METOPROLOL SUCCINATE XL 25 MG TABLET PO ONE (16:55)
[2020-04-14] MEDS: SODIUM HYPOCHLORITE 0.25% IRRIG 473 ML BOTTLE TOP SCH ×2 (17:20→22:44)
[2020-04-14] MEDS: PIPERACILLIN/TAZOBACTAM 3,375 MG in SODIUM CHLORIDE 0.9% 100 ML IV SCH (17:38)
[2020-04-14] MEDS ORDERED: VANCOMYCIN INJ 1,500 MG in SODIUM CHLORIDE 0.9% 500 ML IV SCH (18:00)
[2020-04-14] MEDS: INSULIN REGULAR 100 UNIT/ML SUBCUT SCH ×2 (19:27→22:44)
[2020-04-14] MEDS: SODIUM CHLORIDE 0.9% 1,000 ML IV SCH (22:42)
[2020-04-14] MEDS: VANCOMYCIN INJ 1,500 MG in SODIUM CHLORIDE 0.9% 500 ML IV SCH (22:42)
[2020-04-14] MEDS: METOPROLOL SUCCINATE XL 25 MG TABLET PO SCH (22:43)
[2020-04-14] MEDS: MUPIROCIN 2% OINT 22 GM TUBE TOP SCH (22:44)
[2020-04-14 22:52] LABS: Bacteria,Urine Occasional /HPF (Few); Barbiturates Screen,Urine Negative (Negative); Benzodiazepines Screen,Urine Negative (Negative); Bilirubin,Urine Negative (Negative); Blood, Urine Small mg/dL (Negative); Cannabinoid Screen,Urine Negative (Negative); Glucose,Urine (UA) Negative (Negative); Hyaline Casts,Urine 1 /LPF (0-3); Ketones,Urine Negative (Negative); Mucus,Urine Occasional /LPF (Occasional); Nitrite,Urine Negative (Negative); Opiate Screen,Urine Positive (Negative); Phencyclidine Screen,Urine Negative (Negative); Protein,Urine 100 MG/DL; RBC,Urine 8 /HPF (0-4); Squamous Epithelial Cell,Urine Occasional /HPF (0-10); Urine Appearance CLEAR (Clear); Urine Color Yellow (Yellow); Urine Specific Gravity 1.015 (1.001-1.035); Urine Urobilinogen < 2.0 EU/DL (0.2-1.0); WBC,Urine 2 /HPF (0-6)
[2020-04-15] MEDS: PIPERACILLIN/TAZOBACTAM 3,375 MG in SODIUM CHLORIDE 0.9% 100 ML IV SCH ×3 (03:15→18:27)
[2020-04-15] MEDS: SODIUM CHLORIDE 0.9% 1,000 ML IV SCH ×3 (06:33→22:15)
[2020-04-15 07:53] LABS: Basophils % 0.2 % (0.0-0.8); Eosinophils % 0.1 % (0.00-10.9); Hematocrit 24.4 VOL% (42.0-52.0); Immature Granulocytes % 1.3 %; Immature Granulocytes Absolute 0.22 #; Lymphocytes # 0.8 10*3/uL (1.4-4.0); Lymphocytes % 4.6 % (21.2-54.2); Mean Corpuscular HGB Conc 32.8 GM/DL (32-36); Mean Corpuscular Volume 109.4 FL (87-102); Mean Platelet Volume 9.4 FL (9.6-12.0); Monocytes % 3.6 % (1.7-12.7); Neutrophils % 90.2 % (38.7-73.9); Platelet Count 171 T/CUMM (130-400); Red Blood Count 2.23 MC/CUMM (3.8-5.5); Red Cell Distribution Width 13.5 % (9.3-17.3); White Blood Count 17.1 T/CUMM (4-12)
[2020-04-15 08:08] LABS: Calcium 8.2 MG/DL (8.5-10.1)
[2020-04-15 08:37] LABS: Lymphocytes 8 % (20-55); Segmented Neutrophils 84 % (50-85); Total Cells Counted 100
[2020-04-15 08:38] LABS: Hypochromasia 2+; Microcytosis 1+; Platelet Estimate Adequate
[2020-04-15] MEDS ORDERED: ETOMIDATE 20 MG/10 ML VIAL IV ONE (09:00)
[2020-04-15] MEDS ORDERED: LIDOCAINE 2% 5 ML VIAL ONE (09:00)
[2020-04-15] MEDS ORDERED: propofoL 200 MG/20 ML VIAL IV ONE (09:00)
[2020-04-15] MEDS ORDERED: FOLIC ACID 1 MG TABLET PO SCH (09:00)
[2020-04-15] MEDS ORDERED: MULTIVITAMIN (CENTRUM) TABLET PO SCH (09:00)
[2020-04-15] MEDS ORDERED: ROCURONIUM 100 MG/10 ML VIAL IV ONE ×2 (09:00→12:24)
[2020-04-15] MEDS ORDERED: PANTOPRAZOLE 40 MG TABLET PO SCH (09:00)
[2020-04-15] MEDS ORDERED: THIAMINE 100 MG TABLET PO SCH (09:00)
[2020-04-15 09:21] LABS: % Iron Saturation 10.4 % (18-50); Ferritin 171.4 ng/ml (26-388)
[2020-04-15] MEDS: MUPIROCIN 2% OINT 22 GM TUBE TOP SCH ×2 (09:28→21:00)
[2020-04-15] MEDS: SODIUM HYPOCHLORITE 0.25% IRRIG 473 ML BOTTLE TOP SCH (09:28)
[2020-04-15] MEDS: METOPROLOL SUCCINATE XL 25 MG TABLET PO SCH (09:29)
[2020-04-15] MEDS ORDERED: PANTOPRAZOLE 40 MG VIAL IV STA (09:39)
[2020-04-15] MEDS: LACTATED RINGERS 1,000 ML IV SCH (10:45)
[2020-04-15] MEDS ORDERED: ONDANSETRON 4 MG/2 ML VIAL ONE (10:52)
[2020-04-15] MEDS ORDERED: SODIUM CHLORIDE 0.9% 1,000 ML IV PRN ×4 (10:56→18:13)
[2020-04-15] MEDS ORDERED: METOCLOPRAMIDE 10 MG/2 ML VIAL IV ONE (11:02)
[2020-04-15] MEDS ORDERED: METOCLOPRAMIDE 10 MG/2 ML VIAL ONE (11:09)
[2020-04-15] MEDS ORDERED: MIDAZOLAM 2 MG/2 ML VIAL ONE (12:02)
[2020-04-15] MEDS ORDERED: EPINEPHrine 1 MG/ML VIAL ONE (13:03)
[2020-04-15] MEDS: VANCOMYCIN INJ 1,500 MG in SODIUM CHLORIDE 0.9% 500 ML IV SCH ×2 (14:18→23:11)
[2020-04-15] MEDS: MIDAZOLAM 100 MG in SODIUM CHLORIDE 0.9% 80 ML IV PRN ×2 (15:13→22:26)
[2020-04-15] MEDS ORDERED: PHENYLEPHRINE DRIP 40 MG/250 ML PREMIX IV ONE (15:31)
[2020-04-15] MEDS ORDERED: PHENYLEPHRINE DRIP 40 MG/250 ML PREMIX IV PRN (15:37)
[2020-04-15 16:13] LABS: Bilirubin,Urine Negative (Negative); Blood, Urine Negative (Negative); Glucose,Urine (UA) Negative (Negative); Hyaline Casts,Urine 1 /LPF (0-3); Ketones,Urine Negative (Negative); Mucus,Urine Occasional /LPF (Occasional); Nitrite,Urine Negative (Negative); Protein,Urine 100 MG/DL; RBC,Urine 2 /HPF (0-4); Squamous Epithelial Cell,Urine Occasional /HPF (0-10); Urine Appearance CLEAR (Clear); Urine Color Yellow (Yellow); Urine Specific Gravity 1.014 (1.001-1.035); Urine Urobilinogen < 2.0 EU/DL (0.2-1.0); WBC,Urine 2 /HPF (0-6)
[2020-04-15] MEDS: THIAMINE INJ 100 MG, FOLIC ACID INJ 1 MG, MULTIVITAMIN INJ 10 ML in SODIUM CHLORIDE 0.9... IV SCH (16:19)
[2020-04-15] MEDS: PANTOPRAZOLE INJ 200 MG in SODIUM CHLORIDE 0.9% 250 ML IV SCH (16:19)
[2020-04-15 16:53] LABS: ABG PCO2 34.2 MM HG (35-48); ABG PH 7.522 (7.35-7.45); ABG TCO2 26.5 MMOL/L (23-27)
[2020-04-15 18:02] LABS: Hematocrit 17.6 VOL% (42.0-52.0); Hemoglobin 5.7 GM/DL (14.0-18.0)
[2020-04-15 18:09] LABS: INR 1.2; PT Patient Result 12.7 SECS (9.8-11.9); Partial Thromboplastin Time 65.6 SECS (23.9-33.8)
[2020-04-15 19:08] LABS: HIV Antigen/Antibody Result Nonreactive (Nonreactive); Hepatitis B Core IgM Quant 0.14 Index; Hepatitis B Surface Ag Quant 0.18 Index; Hepatitis B Surface Ag Result Negative (Negative); Hepatitis C Virus Ab Result Negative (Negative)
[2020-04-15] MEDS ORDERED: PANTOPRAZOLE 40 MG VIAL IV SCH (21:00)
[2020-04-16] MEDS: SODIUM CHLORIDE 0.9% 1,000 ML IV SCH ×5 (00:40→23:50)
[2020-04-16] MEDS: PIPERACILLIN/TAZOBACTAM 3,375 MG in SODIUM CHLORIDE 0.9% 100 ML IV SCH (01:53)
[2020-04-16 05:01] LABS: ABG Base Excess 4.6 MMOL/L (-2.5-2.5); ABG HCO3 28.6 MMOL/L (20-26); ABG PCO2 39.3 MM HG (35-48); ABG PH 7.469 (7.35-7.45); ABG TCO2 27.4 MMOL/L (23-27)
[2020-04-16 05:03] LABS: Basophils % 0.1 % (0.0-0.8); Eosinophils % 0.1 % (0.00-10.9); Immature Granulocytes % 1.6 %; Immature Granulocytes Absolute 0.22 #; Lymphocytes % 6.8 % (21.2-54.2); Mean Corpuscular HGB Conc 34.2 GM/DL (32-36); Mean Corpuscular Volume 95.8 FL (87-102); Mean Platelet Volume 9.4 FL (9.6-12.0); Monocytes % 4.4 % (1.7-12.7); Red Blood Count 1.65 MC/CUMM (3.8-5.5); Red Cell Distribution Width 20.5 % (9.3-17.3); White Blood Count 14.1 T/CUMM (4-12)
[2020-04-16 05:05] LABS: Platelet Count 126 T/CUMM (130-400)
[2020-04-16 05:07] LABS: Hematocrit 15.8 VOL% (42.0-52.0); Hemoglobin 5.4 GM/DL (14.0-18.0)
[2020-04-16] MEDS: MUPIROCIN 2% OINT 22 GM TUBE TOP SCH ×3 (05:14→21:05)
[2020-04-16 05:18] LABS: Calcium 7.5 MG/DL (8.5-10.1); Osmolality,Calculated 302.1 MOS/KG (273-304)
[2020-04-16] MEDS: MIDAZOLAM 100 MG in SODIUM CHLORIDE 0.9% 80 ML IV PRN ×2 (06:43→17:19)
[2020-04-16] MEDS ORDERED: SODIUM CHLORIDE 0.9% 1,000 ML IV PRN ×2 (07:03→11:33)
[2020-04-16] MEDS ORDERED: CALCIUM GLUCONATE 2,000 MG in SODIUM CHLORIDE 0.9% 100 ML IV ONE (08:30)
[2020-04-16] MEDS: SODIUM HYPOCHLORITE 0.25% IRRIG 473 ML BOTTLE TOP SCH (11:26)
[2020-04-16] MEDS: LACTATED RINGERS 1,000 ML IV SCH (11:27)
[2020-04-16] MEDS: MEROPENEM 500 MG in SODIUM CHLORIDE 0.9% 100 ML IV SCH ×2 (11:28→17:17)
[2020-04-16] MEDS ORDERED: HEPARIN/NACL 0.9% 2 UNITS/ML 2,000 ML IV ONE (12:50)
[2020-04-16 13:12] LABS: PT Patient Result 11.1 SECS (9.8-11.9); Partial Thromboplastin Time 36.6 SECS (23.9-33.8)
[2020-04-16] MEDS ORDERED: HEPARIN/NACL 0.9% 2 UNITS/ML 1,000 ML IV ONE (13:41)
[2020-04-16] MEDS: PANTOPRAZOLE INJ 200 MG in SODIUM CHLORIDE 0.9% 250 ML IV SCH ×2 (13:42→17:20)
[2020-04-16 13:45] LABS: Hematocrit 20.3 VOL% (42.0-52.0)
[2020-04-16] MEDS ORDERED: CALCIUM CHLORIDE 1,000 MG/10 ML VIAL IV ONE (14:55)
[2020-04-16] MEDS ORDERED: FAMOTIDINE 20 MG/2 ML VIAL IV ONE (14:55)
[2020-04-16] MEDS ORDERED: diphenhydrAMINE 50 MG/1 ML VIAL ONE (14:55)
[2020-04-16] MEDS ORDERED: MIDAZOLAM 10 MG/2 ML VIAL ONE (14:55)
[2020-04-16] MEDS ORDERED: SODIUM CHLORIDE 0.9% 1,000 ML IV ONE (14:55)
[2020-04-16] MEDS ORDERED: ROCURONIUM 100 MG/10 ML VIAL IV ONE (14:55)
[2020-04-16] MEDS ORDERED: SODIUM CHLORIDE 0.9% 500 ML IV ONE (14:55)
[2020-04-16] MEDS ORDERED: SEVOFLURANE 1 UNIT/15 MINUTE INH ONE (14:55)
[2020-04-16] MEDS: THIAMINE INJ 100 MG, FOLIC ACID INJ 1 MG, MULTIVITAMIN INJ 10 ML in SODIUM CHLORIDE 0.9... IV SCH (16:17)
[2020-04-16 17:27] LABS: Bilirubin,Urine Negative (Negative); Blood, Urine Negative (Negative); Glucose,Urine (UA) Negative (Negative); Ketones,Urine Negative (Negative); Nitrite,Urine Negative (Negative); Protein,Urine Negative; RBC,Urine 3 /HPF (0-4); Squamous Epithelial Cell,Urine Occasional /HPF (0-10); Urine Appearance CLEAR (Clear); Urine Color Yellow (Yellow); Urine Specific Gravity 1.017 (1.001-1.035); Urine Urobilinogen < 2.0 EU/DL (0.2-1.0); WBC,Urine 4 /HPF (0-6)
[2020-04-16 21:17] LABS: Hematocrit 25.5 VOL% (42.0-52.0); Hemoglobin 8.6 GM/DL (14.0-18.0)
[2020-04-17] MEDS: MIDAZOLAM 100 MG in SODIUM CHLORIDE 0.9% 80 ML IV PRN (02:01)
[2020-04-17] MEDS: MEROPENEM 500 MG in SODIUM CHLORIDE 0.9% 100 ML IV SCH ×3 (02:59→17:13)
[2020-04-17] MEDS: SODIUM CHLORIDE 0.9% 1,000 ML IV SCH (03:00)
[2020-04-17 04:00] LABS: Basophils % 0.3 % (0.0-0.8); Eosinophils # 0.1 10*3/uL (0.0-0.87); Hemoglobin 8.7 GM/DL (14.0-18.0); Immature Granulocytes % 1.2 %; Immature Granulocytes Absolute 0.18 #; Lymphocytes # 0.7 10*3/uL (1.4-4.0); Mean Corpuscular HGB Conc 33.5 GM/DL (32-36); Mean Corpuscular Volume 92.5 FL (87-102); Mean Platelet Volume 9.7 FL (9.6-12.0); Monocytes % 3.1 % (1.7-12.7); Neutrophils % 89.4 % (38.7-73.9); Platelet Count 146 T/CUMM (130-400); Red Blood Count 2.81 MC/CUMM (3.8-5.5); Red Cell Distribution Width 19.3 % (9.3-17.3); White Blood Count 14.7 T/CUMM (4-12)
[2020-04-17 04:25] LABS: Albumin 1.9 G/DL (3.4-5.0); Bilirubin,Total 0.5 MG/DL (0.2-1.0); Osmolality,Calculated 302.6 MOS/KG (273-304); Total Protein 5.6 G/DL (6.4-8.3)
[2020-04-17 04:26] LABS: PT Patient Result 10.5 SECS (9.8-11.9); Partial Thromboplastin Time 31.1 SECS (23.9-33.8)
[2020-04-17 04:48] LABS: ABG Base Excess 1.1 MMOL/L (-2.5-2.5); ABG HCO3 25.4 MMOL/L (20-26); ABG Oxygen Saturation 99.1 % (95-100); ABG PCO2 37.8 MM HG (35-48); ABG PH 7.434 (7.35-7.45); ABG TCO2 23.5 MMOL/L (23-27)
[2020-04-17] MEDS ORDERED: DEXTROSE 5% NACL 0.9% 1,000 ML IV SCH ×2 (09:00→17:00)
[2020-04-17] MEDS: SODIUM HYPOCHLORITE 0.25% IRRIG 473 ML BOTTLE TOP SCH (09:04)
[2020-04-17] MEDS: MUPIROCIN 2% OINT 22 GM TUBE TOP SCH ×2 (09:05→20:31)
[2020-04-17] MEDS: VANCOMYCIN INJ 1,500 MG in SODIUM CHLORIDE 0.9% 500 ML IV SCH (09:06)
[2020-04-17] MEDS ORDERED: DEXTROSE 5% NACL 0.45% 1,000 ML IV SCH (10:00)
[2020-04-17] MEDS ORDERED: cloNIDine 0.1 MG/24 HR PATCH TRANSDERM SCH (10:00)
[2020-04-17] MEDS: LACTATED RINGERS 1,000 ML IV SCH (10:29)
[2020-04-17] MEDS: niCARdipine INJ 25 MG in SODIUM CHLORIDE 0.9% 240 ML IV PRN ×2 (11:51→15:33)
[2020-04-17] MEDS: PANTOPRAZOLE INJ 200 MG in SODIUM CHLORIDE 0.9% 250 ML IV SCH ×2 (14:46→18:25)
[2020-04-17] MEDS: ALBUTEROL/IPRATROPIUM 3 ML NEB RESP TX SCH ×2 (14:55→19:30)
[2020-04-17] MEDS: THIAMINE INJ 100 MG, FOLIC ACID INJ 1 MG, MULTIVITAMIN INJ 10 ML in SODIUM CHLORIDE 0.9... IV SCH (14:58)
[2020-04-17] MEDS ORDERED: THIAMINE INJ 100 MG, FOLIC ACID INJ 1 MG, MULTIVITAMIN INJ 10 ML in DEXTROSE 5% NACL 0.... IV SCH (16:00)
[2020-04-17] MEDS: FUROSEMIDE 40 MG/4 ML VIAL IV SCH (16:14)
[2020-04-17] MEDS: niCARdipine INJ 50 MG in SODIUM CHLORIDE 0.9% 480 ML IV PRN ×2 (17:50→21:15)
[2020-04-17] MEDS ORDERED: hydrALAZINE 20 MG/1 ML VIAL IV PRN (22:00)
[2020-04-17 22:22] LABS: Hematocrit 24.5 VOL% (42.0-52.0); Hemoglobin 8.2 GM/DL (14.0-18.0)
[2020-04-18] MEDS: ALBUTEROL/IPRATROPIUM 3 ML NEB RESP TX SCH ×4 (01:12→19:22)
[2020-04-18] MEDS: niCARdipine INJ 50 MG in SODIUM CHLORIDE 0.9% 480 ML IV PRN ×5 (01:45→21:59)
[2020-04-18] MEDS: MEROPENEM 500 MG in SODIUM CHLORIDE 0.9% 100 ML IV SCH ×4 (03:13→22:38)
[2020-04-18 04:24] LABS: ABG Base Excess 1.5 MMOL/L (-2.5-2.5); ABG HCO3 25.8 MMOL/L (20-26); ABG Oxygen Saturation 96.6 % (95-100); ABG PCO2 37.9 MM HG (35-48); ABG PH 7.438 (7.35-7.45); ABG PO2 82.4 MM HG (80-95); ABG TCO2 23.8 MMOL/L (23-27)
[2020-04-18 04:29] LABS: Basophils % 0.2 % (0.0-0.8); Eosinophils # 0.2 10*3/uL (0.0-0.87); Eosinophils % 1.3 % (0.00-10.9); Hemoglobin 8.2 GM/DL (14.0-18.0); Immature Granulocytes % 0.9 %; Lymphocytes # 0.6 10*3/uL (1.4-4.0); Lymphocytes % 5.6 % (21.2-54.2); Mean Corpuscular HGB Conc 32.8 GM/DL (32-36); Mean Corpuscular Volume 95.8 FL (87-102); Mean Platelet Volume 9.7 FL (9.6-12.0); Monocytes % 4.9 % (1.7-12.7); Neutrophils % 87.1 % (38.7-73.9); Platelet Count 151 T/CUMM (130-400); Red Blood Count 2.61 MC/CUMM (3.8-5.5); Red Cell Distribution Width 18.4 % (9.3-17.3); White Blood Count 11.3 T/CUMM (4-12)
[2020-04-18 04:46] LABS: Albumin 1.7 G/DL (3.4-5.0); Bilirubin,Total 0.5 MG/DL (0.2-1.0); Calcium 7.7 MG/DL (8.5-10.1); Osmolality,Calculated 299.3 MOS/KG (273-304); Total Protein 5.5 G/DL (6.4-8.3)
[2020-04-18] MEDS: FUROSEMIDE 40 MG/4 ML VIAL IV SCH ×2 (08:46→10:05)
[2020-04-18] MEDS: SODIUM HYPOCHLORITE 0.25% IRRIG 473 ML BOTTLE TOP SCH (08:47)
[2020-04-18] MEDS: MUPIROCIN 2% OINT 22 GM TUBE TOP SCH ×2 (08:47→21:03)
[2020-04-18] MEDS: VANCOMYCIN INJ 1,500 MG in SODIUM CHLORIDE 0.9% 500 ML IV SCH (08:48)
[2020-04-18] MEDS: PANTOPRAZOLE 40 MG VIAL IV SCH (20:57)
[2020-04-19] MEDS: ALBUTEROL/IPRATROPIUM 3 ML NEB RESP TX SCH ×4 (01:38→19:53)
[2020-04-19] MEDS: niCARdipine INJ 50 MG in SODIUM CHLORIDE 0.9% 480 ML IV PRN ×6 (01:56→23:30)
[2020-04-19] MEDS: MEROPENEM 500 MG in SODIUM CHLORIDE 0.9% 100 ML IV SCH ×4 (03:52→21:24)
[2020-04-19 04:46] LABS: ABG Base Excess 1.2 MMOL/L (-2.5-2.5); ABG HCO3 25.4 MMOL/L (20-26); ABG Oxygen Saturation 95.9 % (95-100); ABG PCO2 36.1 MM HG (35-48); ABG PH 7.448 (7.35-7.45); ABG PO2 78.6 MM HG (80-95); ABG TCO2 22.6 MMOL/L (23-27)
[2020-04-19 05:06] LABS: Basophils % 0.3 % (0.0-0.8); Eosinophils # 0.1 10*3/uL (0.0-0.87); Eosinophils % 0.7 % (0.00-10.9); Hematocrit 27.4 VOL% (42.0-52.0); Hemoglobin 8.8 GM/DL (14.0-18.0); Immature Granulocytes % 1.1 %; Immature Granulocytes Absolute 0.14 #; Lymphocytes # 0.6 10*3/uL (1.4-4.0); Lymphocytes % 4.4 % (21.2-54.2); Mean Corpuscular HGB Conc 32.1 GM/DL (32-36); Mean Corpuscular Volume 97.5 FL (87-102); Monocytes % 5.3 % (1.7-12.7); Neutrophils % 88.2 % (38.7-73.9); Platelet Count 159 T/CUMM (130-400); Red Blood Count 2.81 MC/CUMM (3.8-5.5); Red Cell Distribution Width 17.4 % (9.3-17.3); White Blood Count 13.3 T/CUMM (4-12)
[2020-04-19 05:15] LABS: Albumin 1.9 G/DL (3.4-5.0); Bilirubin,Total 1.1 MG/DL (0.2-1.0); Calcium 8.2 MG/DL (8.5-10.1); Osmolality,Calculated 297.3 MOS/KG (273-304)
[2020-04-19 06:52] LABS: Lymphocytes 4 % (20-55); Platelet Estimate Normal; Segmented Neutrophils 91 % (50-85); Total Cells Counted 100
[2020-04-19 06:54] LABS: Anisocytosis 1+; Macrocytosis Slight; Polychromasia Slight
[2020-04-19] MEDS: PANTOPRAZOLE 40 MG VIAL IV SCH ×2 (08:45→21:23)
[2020-04-19] MEDS: FUROSEMIDE 40 MG/4 ML VIAL IV SCH (08:45)
[2020-04-19] MEDS: MUPIROCIN 2% OINT 22 GM TUBE TOP SCH ×2 (08:46→21:24)
[2020-04-19] MEDS: SODIUM HYPOCHLORITE 0.25% IRRIG 473 ML BOTTLE TOP SCH (08:46)
[2020-04-19] MEDS: VANCOMYCIN INJ 1,500 MG in SODIUM CHLORIDE 0.9% 500 ML IV SCH (08:46)
[2020-04-19 09:41] LABS: Myeloperoxidase Antibody < 0.2 U
[2020-04-19 15:14] LABS: Phospholipid Ab IgM, S < 9.4 MPL
[2020-04-20] MEDS: ALBUTEROL/IPRATROPIUM 3 ML NEB RESP TX SCH ×4 (00:44→19:29)
[2020-04-20] MEDS: niCARdipine INJ 50 MG in SODIUM CHLORIDE 0.9% 480 ML IV PRN ×6 (02:48→21:30)
[2020-04-20 05:47] LABS: ABG Base Excess 0.8 MMOL/L (-2.5-2.5); ABG HCO3 25.1 MMOL/L (20-26); ABG Oxygen Saturation 96.1 % (95-100); ABG PCO2 34.1 MM HG (35-48); ABG PH 7.461 (7.35-7.45); ABG PO2 77.7 MM HG (80-95); ABG TCO2 22.4 MMOL/L (23-27)
[2020-04-20 05:56] LABS: Basophils % 0.2 % (0.0-0.8); Eosinophils # 0.1 10*3/uL (0.0-0.87); Eosinophils % 0.5 % (0.00-10.9); Hematocrit 26.9 VOL% (42.0-52.0); Hemoglobin 8.9 GM/DL (14.0-18.0); Immature Granulocytes % 2.4 %; Immature Granulocytes Absolute 0.42 #; Lymphocytes # 0.5 10*3/uL (1.4-4.0); Lymphocytes % 2.8 % (21.2-54.2); Mean Corpuscular HGB Conc 33.1 GM/DL (32-36); Mean Corpuscular Volume 95.7 FL (87-102); Mean Platelet Volume 9.6 FL (9.6-12.0); Monocytes % 5.8 % (1.7-12.7); Neutrophils % 88.3 % (38.7-73.9); Platelet Count 162 T/CUMM (130-400); Red Blood Count 2.81 MC/CUMM (3.8-5.5); Red Cell Distribution Width 16.9 % (9.3-17.3); White Blood Count 17.7 T/CUMM (4-12)
[2020-04-20] MEDS: MEROPENEM 500 MG in SODIUM CHLORIDE 0.9% 100 ML IV SCH ×3 (06:19→17:38)
[2020-04-20 06:30] LABS: Albumin 1.8 G/DL (3.4-5.0); Bilirubin,Total 0.6 MG/DL (0.2-1.0); Calcium 8.1 MG/DL (8.5-10.1); Osmolality,Calculated 293.4 MOS/KG (273-304); Total Protein 5.9 G/DL (6.4-8.3)
[2020-04-20 07:04] LABS: Band Neutrophils 2 % (0-10); Eosinophils 2 % (0-10); Lymphocytes 4 % (20-55); Platelet Estimate Normal; Segmented Neutrophils 87 % (50-85); Total Cells Counted 100
[2020-04-20 07:05] LABS: Anisocytosis 2+
[2020-04-20] MEDS ORDERED: MAGNESIUM SULF RIDER 4 GM in PREMIX 1 EACH IV PRN (07:28)
[2020-04-20] MEDS: MUPIROCIN 2% OINT 22 GM TUBE TOP SCH ×2 (08:23→21:30)
[2020-04-20] MEDS: SODIUM HYPOCHLORITE 0.25% IRRIG 473 ML BOTTLE TOP SCH (08:23)
[2020-04-20] MEDS: PANTOPRAZOLE 40 MG VIAL IV SCH ×2 (08:24→21:30)
[2020-04-20] MEDS: FUROSEMIDE 40 MG/4 ML VIAL IV SCH (08:24)
[2020-04-20] MEDS: VANCOMYCIN INJ 1,500 MG in SODIUM CHLORIDE 0.9% 500 ML IV SCH (08:38)
[2020-04-20] MEDS: MAGNESIUM SULF RIDER 2 GM in PREMIX 1 EACH IV PRN (10:07)
[2020-04-20] MEDS: POTASSIUM CHLORIDE RIDER 10 MEQ in PREMIX 1 EACH IV PRN ×8 (10:08→22:39)
[2020-04-20] MEDS: METOPROLOL TARTRATE 25 MG TABLET PO SCH ×2 (10:41→21:30)
[2020-04-21] MEDS: ALBUTEROL/IPRATROPIUM 3 ML NEB RESP TX SCH ×4 (00:08→19:37)
[2020-04-21] MEDS: MEROPENEM 500 MG in SODIUM CHLORIDE 0.9% 100 ML IV SCH ×5 (01:00→23:49)
[2020-04-21] MEDS: niCARdipine INJ 50 MG in SODIUM CHLORIDE 0.9% 480 ML IV PRN ×7 (01:46→21:15)
[2020-04-21] MEDS: POTASSIUM CHLORIDE RIDER 10 MEQ in PREMIX 1 EACH IV PRN ×4 (01:55→07:08)
[2020-04-21 04:52] LABS: ABG Base Excess -3.2 MMOL/L (-2.5-2.5); ABG HCO3 20.1 MMOL/L (20-26); ABG Oxygen Saturation 96.7 % (95-100); ABG PCO2 30.4 MM HG (35-48); ABG PH 7.438 (7.35-7.45); ABG PO2 90.8 MM HG (80-95)
[2020-04-21 05:13] LABS: Basophils % 0.2 % (0.0-0.8); Eosinophils # 0.1 10*3/uL (0.0-0.87); Eosinophils % 0.6 % (0.00-10.9); Hematocrit 23.7 VOL% (42.0-52.0); Hemoglobin 7.5 GM/DL (14.0-18.0); Immature Granulocytes % 1.1 %; Lymphocytes # 0.7 10*3/uL (1.4-4.0); Lymphocytes % 3.8 % (21.2-54.2); Mean Corpuscular HGB Conc 31.6 GM/DL (32-36); Mean Platelet Volume 9.8 FL (9.6-12.0); Monocytes % 5.8 % (1.7-12.7); Neutrophils % 88.5 % (38.7-73.9); Platelet Count 174 T/CUMM (130-400); Red Blood Count 2.37 MC/CUMM (3.8-5.5); Red Cell Distribution Width 17.1 % (9.3-17.3)
[2020-04-21 05:27] LABS: Calcium 8.1 MG/DL (8.5-10.1); Osmolality,Calculated 295.4 MOS/KG (273-304)
[2020-04-21 05:31] LABS: Eosinophils 1 % (0-10); Hypochromasia 2+; Lymphocytes 5 % (20-55); Microcytosis 1+; Platelet Estimate Adequate; Segmented Neutrophils 93 % (50-85); Total Cells Counted 100
[2020-04-21] MEDS: METOPROLOL TARTRATE 25 MG TABLET PO SCH ×2 (08:29→20:36)
[2020-04-21] MEDS: PANTOPRAZOLE 40 MG VIAL IV SCH ×2 (08:29→20:10)
[2020-04-21] MEDS: SODIUM HYPOCHLORITE 0.25% IRRIG 473 ML BOTTLE TOP SCH (08:30)
[2020-04-21] MEDS: MUPIROCIN 2% OINT 22 GM TUBE TOP SCH ×2 (08:30→21:28)
[2020-04-21] MEDS: VANCOMYCIN INJ 1,500 MG in SODIUM CHLORIDE 0.9% 500 ML IV SCH (08:34)
[2020-04-21] MEDS: cloNIDine 0.1 MG TABLET PO PRN ×4 (11:40→23:50)
[2020-04-21] MEDS: cloNIDine 0.3 MG/24 HR PATCH TRANSDERM SCH (11:44)
[2020-04-21] MEDS ORDERED: SODIUM CHLORIDE 0.45% 1,000 ML IV SCH (12:30)
[2020-04-21 14:16] LABS: ABG Base Excess -3.5 MMOL/L (-2.5-2.5); ABG HCO3 19.8 MMOL/L (20-26); ABG Oxygen Saturation 92.7 % (95-100); ABG PCO2 29.2 MM HG (35-48); ABG PO2 66.6 MM HG (80-95); ABG TCO2 20.7 MMOL/L (23-27)
[2020-04-21] MEDS ORDERED: FUROSEMIDE 40 MG/4 ML VIAL IV ONE (20:25)
[2020-04-22] MEDS: ALBUTEROL/IPRATROPIUM 3 ML NEB RESP TX SCH ×4 (00:12→19:17)
[2020-04-22] MEDS: niCARdipine INJ 50 MG in SODIUM CHLORIDE 0.9% 480 ML IV PRN ×3 (00:35→17:20)
[2020-04-22 03:11] LABS: ABG Base Excess -4.4 MMOL/L (-2.5-2.5); ABG HCO3 19.1 MMOL/L (20-26); ABG Oxygen Saturation 90.8 % (95-100); ABG PCO2 28.9 MM HG (35-48); ABG PH 7.439 (7.35-7.45); ABG PO2 64.4 MM HG (80-95)
[2020-04-22 03:17] LABS: Basophils % 0.2 % (0.0-0.8); Eosinophils # 0.1 10*3/uL (0.0-0.87); Eosinophils % 0.9 % (0.00-10.9); Hematocrit 21.9 VOL% (42.0-52.0); Immature Granulocytes % 0.8 %; Immature Granulocytes Absolute 0.11 #; Lymphocytes # 0.7 10*3/uL (1.4-4.0); Mean Corpuscular Volume 98.2 FL (87-102); Mean Platelet Volume 9.9 FL (9.6-12.0); Monocytes % 5.6 % (1.7-12.7); Neutrophils % 87.5 % (38.7-73.9); Platelet Count 160 T/CUMM (130-400); Red Blood Count 2.23 MC/CUMM (3.8-5.5); Red Cell Distribution Width 16.7 % (9.3-17.3); White Blood Count 13.1 T/CUMM (4-12)
[2020-04-22] MEDS: cloNIDine 0.1 MG TABLET PO PRN ×2 (03:20→20:04)
[2020-04-22 03:34] LABS: Albumin 1.7 G/DL (3.4-5.0); Bilirubin,Total 0.5 MG/DL (0.2-1.0); Calcium 8.1 MG/DL (8.5-10.1); Osmolality,Calculated 296.4 MOS/KG (273-304); Total Protein 5.5 G/DL (6.4-8.3)
[2020-04-22] MEDS: MAGNESIUM SULF RIDER 2 GM in PREMIX 1 EACH IV PRN (04:43)
[2020-04-22] MEDS: POTASSIUM CHLORIDE RIDER 10 MEQ in PREMIX 1 EACH IV PRN ×2 (04:44→05:55)
[2020-04-22] MEDS: MEROPENEM 500 MG in SODIUM CHLORIDE 0.9% 100 ML IV SCH ×3 (06:00→23:45)
[2020-04-22] MEDS ORDERED: SODIUM CHLORIDE 0.9% 1,000 ML IV PRN (08:09)
[2020-04-22] MEDS ORDERED: FUROSEMIDE 40 MG/4 ML VIAL IV PRN ×2 (08:09→10:51)
[2020-04-22] MEDS: FUROSEMIDE 20 MG/2 ML VIAL IV SCH ×2 (08:09→16:05)
[2020-04-22] MEDS: METOPROLOL TARTRATE 25 MG TABLET PO SCH ×2 (08:10→20:04)
[2020-04-22] MEDS: PANTOPRAZOLE 40 MG VIAL IV SCH ×2 (08:10→20:04)
[2020-04-22] MEDS: VANCOMYCIN INJ 1,500 MG in SODIUM CHLORIDE 0.9% 500 ML IV SCH (08:12)
[2020-04-22] MEDS: MUPIROCIN 2% OINT 22 GM TUBE TOP SCH (08:13)
[2020-04-22] MEDS: SODIUM HYPOCHLORITE 0.25% IRRIG 473 ML BOTTLE TOP SCH (08:13)
[2020-04-22] MEDS: NIFEdipine 10 MG CAPSULE PO SCH ×2 (12:10→17:19)
[2020-04-23] MEDS: NIFEdipine 10 MG CAPSULE PO SCH ×4 (00:05→18:00)
[2020-04-23] MEDS: cloNIDine 0.1 MG TABLET PO PRN ×4 (00:05→20:53)
[2020-04-23] MEDS: ALBUTEROL/IPRATROPIUM 3 ML NEB RESP TX SCH ×4 (01:16→18:23)
[2020-04-23] MEDS: MUPIROCIN 2% OINT 22 GM TUBE TOP SCH ×3 (01:26→22:29)
[2020-04-23 05:05] LABS: ABG Oxygen Saturation 92.3 % (95-100); ABG PCO2 29.3 MM HG (35-48); ABG PO2 64.1 MM HG (80-95); ABG TCO2 17.8 MMOL/L (23-27)
[2020-04-23] MEDS: MEROPENEM 500 MG in SODIUM CHLORIDE 0.9% 100 ML IV SCH ×3 (05:20→18:00)
[2020-04-23 05:41] LABS: Albumin 1.8 G/DL (3.4-5.0); Bilirubin,Total 0.9 MG/DL (0.2-1.0); Calcium 8.1 MG/DL (8.5-10.1); Osmolality,Calculated 292.7 MOS/KG (273-304)
[2020-04-23] MEDS ORDERED: POTASSIUM CHLORIDE RIDER IV ONE (05:48)
[2020-04-23] MEDS: POTASSIUM CHLORIDE RIDER 10 MEQ in PREMIX 1 EACH IV PRN ×4 (05:49→10:00)
[2020-04-23 06:00] LABS: Basophils % 0.4 % (0.0-0.8); Eosinophils # 0.2 10*3/uL (0.0-0.87); Eosinophils % 1.4 % (0.00-10.9); Hematocrit 29.7 VOL% (42.0-52.0); Immature Granulocytes % 0.8 %; Immature Granulocytes Absolute 0.09 #; Lymphocytes # 0.6 10*3/uL (1.4-4.0); Lymphocytes % 5.4 % (21.2-54.2); Mean Corpuscular Volume 91.7 FL (87-102); Mean Platelet Volume 10.8 FL (9.6-12.0); Monocytes % 5.8 % (1.7-12.7); Neutrophils % 86.2 % (38.7-73.9); Platelet Count 179 T/CUMM (130-400); Red Cell Distribution Width 17.5 % (9.3-17.3); White Blood Count 10.8 T/CUMM (4-12)
[2020-04-23 06:04] LABS: Red Blood Count 3.24 MC/CUMM (3.8-5.5)
[2020-04-23 06:05] LABS: Hemoglobin 9.8 GM/DL (14.0-18.0)
[2020-04-23] MEDS: niCARdipine INJ 50 MG in SODIUM CHLORIDE 0.9% 480 ML IV PRN ×3 (08:15→18:10)
[2020-04-23] MEDS: METOPROLOL TARTRATE 25 MG TABLET PO SCH ×2 (08:44→20:53)
[2020-04-23] MEDS: VANCOMYCIN INJ 1,500 MG in SODIUM CHLORIDE 0.9% 500 ML IV SCH (08:45)
[2020-04-23] MEDS: PANTOPRAZOLE 40 MG VIAL IV SCH ×2 (09:00→20:53)
[2020-04-23] MEDS ORDERED: FUROSEMIDE 40 MG/4 ML VIAL IV SCH (09:00)
[2020-04-23] MEDS: SODIUM HYPOCHLORITE 0.25% IRRIG 473 ML BOTTLE TOP SCH (09:00)
[2020-04-23] MEDS: FUROSEMIDE 40 MG/4 ML VIAL IV SCH ×2 (11:42→18:10)
[2020-04-23] MEDS: minoxidiL 2.5 MG TABLET PO SCH ×2 (11:44→20:53)
[2020-04-23 13:00] LABS: Cyclic Citrull Peptide Interp Negative
[2020-04-23] MEDS: methylPREDNISolone SOD SUC 40 MG/1 ML VIAL IV SCH (18:35)
[2020-04-23] MEDS: FUROSEMIDE 20 MG/2 ML VIAL IV SCH (18:36)
[2020-04-23] MEDS: amLODIPine 10 MG TABLET PO SCH (20:53)
[2020-04-24] MEDS: LORazepam 2 MG/1 ML VIAL IV PRN ×2 (00:15→07:36)
[2020-04-24] MEDS: MEROPENEM 500 MG in SODIUM CHLORIDE 0.9% 100 ML IV SCH ×5 (00:30→23:12)
[2020-04-24] MEDS: cloNIDine 0.1 MG TABLET PO PRN (00:30)
[2020-04-24] MEDS: NIFEdipine 10 MG CAPSULE PO SCH ×4 (00:30→17:49)
[2020-04-24] MEDS: niCARdipine INJ 50 MG in SODIUM CHLORIDE 0.9% 480 ML IV PRN ×3 (01:03→22:37)
[2020-04-24] MEDS: ALBUTEROL/IPRATROPIUM 3 ML NEB RESP TX SCH ×4 (01:29→20:30)
[2020-04-24] MEDS: FUROSEMIDE 40 MG/4 ML VIAL IV SCH ×3 (04:00→18:00)
[2020-04-24] MEDS: methylPREDNISolone SOD SUC 40 MG/1 ML VIAL IV SCH ×2 (06:58→17:50)
[2020-04-24 09:08] LABS: Basophils % 0.2 % (0.0-0.8); Hematocrit 25.3 VOL% (42.0-52.0); Hemoglobin 8.3 GM/DL (14.0-18.0); Immature Granulocytes % 0.5 %; Immature Granulocytes Absolute 0.06 #; Lymphocytes # 0.5 10*3/uL (1.4-4.0); Lymphocytes % 4.5 % (21.2-54.2); Mean Corpuscular HGB Conc 32.8 GM/DL (32-36); Mean Platelet Volume 10.5 FL (9.6-12.0); Monocytes % 2.3 % (1.7-12.7); Neutrophils % 92.5 % (38.7-73.9); Platelet Count 210 T/CUMM (130-400); Red Blood Count 2.72 MC/CUMM (3.8-5.5); Red Cell Distribution Width 17.1 % (9.3-17.3); White Blood Count 11.7 T/CUMM (4-12)
[2020-04-24 09:18] LABS: Calcium 8.8 MG/DL (8.5-10.1)
[2020-04-24 09:34] LABS: Burr Cells Slight; Hypochromasia 1+; Lymphocytes 6 % (20-55); Ovalocytes Slight; Platelet Estimate Adequate; Segmented Neutrophils 92 % (50-85); Total Cells Counted 100
[2020-04-24] MEDS: VANCOMYCIN INJ 1,500 MG in SODIUM CHLORIDE 0.9% 500 ML IV SCH (09:36)
[2020-04-24] MEDS: SODIUM HYPOCHLORITE 0.25% IRRIG 473 ML BOTTLE TOP SCH (10:09)
[2020-04-24] MEDS: amLODIPine 10 MG TABLET PO SCH (10:09)
[2020-04-24] MEDS: minoxidiL 2.5 MG TABLET PO SCH ×2 (10:09→20:29)
[2020-04-24] MEDS: METOPROLOL TARTRATE 25 MG TABLET PO SCH ×2 (10:09→20:29)
[2020-04-24] MEDS: MUPIROCIN 2% OINT 22 GM TUBE TOP SCH ×2 (10:09→20:29)
[2020-04-24] MEDS: PANTOPRAZOLE 40 MG VIAL IV SCH ×2 (10:13→20:29)
[2020-04-24] MEDS ORDERED: VANCOMYCIN INJ 1,500 MG in SODIUM CHLORIDE 0.9% 500 ML IV SCH (21:00)
[2020-04-25] MEDS: NIFEdipine 10 MG CAPSULE PO SCH ×5 (00:27→23:21)
[2020-04-25] MEDS: ALBUTEROL/IPRATROPIUM 3 ML NEB RESP TX SCH ×4 (02:00→19:06)
[2020-04-25] MEDS: FUROSEMIDE 40 MG/4 ML VIAL IV SCH ×3 (03:56→20:23)
[2020-04-25 04:42] LABS: ABG Base Excess -6.6 MMOL/L (-2.5-2.5); ABG HCO3 16.3 MMOL/L (20-26); ABG Oxygen Saturation 95.1 % (95-100); ABG PCO2 23.7 MM HG (35-48); ABG PH 7.455 (7.35-7.45); ABG PO2 79.3 MM HG (80-95); Allen Test Positive; Pt O2 Delivery Device BIPAP
[2020-04-25 05:20] LABS: Basophils % 0.1 % (0.0-0.8); Hematocrit 23.8 VOL% (42.0-52.0); Hemoglobin 7.7 GM/DL (14.0-18.0); Immature Granulocytes % 1.4 %; Immature Granulocytes Absolute 0.14 #; Lymphocytes # 0.7 10*3/uL (1.4-4.0); Lymphocytes % 7.2 % (21.2-54.2); Mean Corpuscular HGB Conc 32.4 GM/DL (32-36); Mean Corpuscular Volume 94.1 FL (87-102); Mean Platelet Volume 10.9 FL (9.6-12.0); Monocytes % 4.3 % (1.7-12.7); Platelet Count 211 T/CUMM (130-400); Red Blood Count 2.53 MC/CUMM (3.8-5.5); Red Cell Distribution Width 17.1 % (9.3-17.3); White Blood Count 10.1 T/CUMM (4-12)
[2020-04-25] MEDS: MEROPENEM 500 MG in SODIUM CHLORIDE 0.9% 100 ML IV SCH ×4 (05:29→23:21)
[2020-04-25] MEDS: methylPREDNISolone SOD SUC 40 MG/1 ML VIAL IV SCH ×2 (05:30→18:49)
[2020-04-25 05:41] LABS: Band Neutrophils 1 % (0-10); Lymphocytes 6 % (20-55); Nucleated Red Blood Cells 1 (0-5); Platelet Estimate Adequate; Segmented Neutrophils 92 % (50-85); Total Cells Counted 100
[2020-04-25 05:42] LABS: Calcium 8.7 MG/DL (8.5-10.1); Hypochromasia 2+; Microcytosis 1+; Osmolality,Calculated 291.1 MOS/KG (273-304); Ovalocytes Slight
[2020-04-25 06:38] LABS: HIV Antigen/Antibody Result Nonreactive (Nonreactive); Hepatitis B Surface Ag Quant 0.21 Index; Hepatitis B Surface Ag Result Negative (Negative); Hepatitis C Virus Ab Quant 0.14 Index; Hepatitis C Virus Ab Result Negative (Negative)
[2020-04-25] MEDS: niCARdipine INJ 50 MG in SODIUM CHLORIDE 0.9% 480 ML IV PRN (07:51)
[2020-04-25] MEDS: minoxidiL 2.5 MG TABLET PO SCH ×2 (08:12→20:23)
[2020-04-25] MEDS: GABAPENTIN 300 MG CAPSULE PO SCH ×3 (08:13→20:23)
[2020-04-25] MEDS: SODIUM HYPOCHLORITE 0.25% IRRIG 473 ML BOTTLE TOP SCH (08:14)
[2020-04-25] MEDS: FOLIC ACID 1 MG TABLET PO SCH (08:14)
[2020-04-25] MEDS: METOPROLOL TARTRATE 25 MG TABLET PO SCH ×2 (08:14→20:23)
[2020-04-25] MEDS: MUPIROCIN 2% OINT 22 GM TUBE TOP SCH ×2 (08:14→20:24)
[2020-04-25] MEDS: amLODIPine 10 MG TABLET PO SCH (08:16)
[2020-04-25] MEDS: PANTOPRAZOLE 40 MG VIAL IV SCH ×2 (08:17→20:23)
[2020-04-25] MEDS ORDERED: CHLORHEXIDINE 4% SOLN 118 ML BOTTLE TOP ONE (10:06)
[2020-04-25] MEDS ORDERED: FUROSEMIDE 40 MG/4 ML VIAL IV SCH (16:00)
[2020-04-25] MEDS: ACETAMINOPHEN 325 MG TABLET PO PRN (16:19)
[2020-04-25] MEDS: SODIUM BICARBONATE 650 MG TABLET PO SCH (20:22)
[2020-04-26] MEDS: ALBUTEROL/IPRATROPIUM 3 ML NEB RESP TX SCH ×4 (01:44→19:50)
[2020-04-26] MEDS: cloNIDine 0.1 MG TABLET PO PRN (04:12)
[2020-04-26 04:42] LABS: Basophils % 0.1 % (0.0-0.8); Hematocrit 23.6 VOL% (42.0-52.0); Hemoglobin 7.5 GM/DL (14.0-18.0); Immature Granulocytes % 1.9 %; Immature Granulocytes Absolute 0.18 #; Lymphocytes # 0.7 10*3/uL (1.4-4.0); Lymphocytes % 7.1 % (21.2-54.2); Mean Corpuscular HGB Conc 31.8 GM/DL (32-36); Mean Corpuscular Volume 95.9 FL (87-102); Mean Platelet Volume 11.4 FL (9.6-12.0); Monocytes % 4.7 % (1.7-12.7); Neutrophils % 86.2 % (38.7-73.9); Platelet Count 209 T/CUMM (130-400); Red Blood Count 2.46 MC/CUMM (3.8-5.5); Red Cell Distribution Width 16.6 % (9.3-17.3); White Blood Count 9.4 T/CUMM (4-12)
[2020-04-26 05:02] LABS: Calcium 8.6 MG/DL (8.5-10.1); Osmolality,Calculated 293.5 MOS/KG (273-304)
[2020-04-26] MEDS: NIFEdipine 10 MG CAPSULE PO SCH ×3 (06:59→18:05)
[2020-04-26] MEDS: methylPREDNISolone SOD SUC 40 MG/1 ML VIAL IV SCH ×2 (06:59→18:05)
[2020-04-26] MEDS: minoxidiL 2.5 MG TABLET PO SCH ×2 (08:25→22:16)
[2020-04-26] MEDS: METOPROLOL TARTRATE 25 MG TABLET PO SCH ×2 (08:26→22:17)
[2020-04-26] MEDS: GABAPENTIN 300 MG CAPSULE PO SCH ×3 (08:26→22:17)
[2020-04-26] MEDS: PANTOPRAZOLE 40 MG VIAL IV SCH ×2 (08:26→22:23)
[2020-04-26] MEDS: amLODIPine 10 MG TABLET PO SCH (08:26)
[2020-04-26] MEDS: FUROSEMIDE 40 MG/4 ML VIAL IV SCH ×3 (08:27→22:20)
[2020-04-26] MEDS: MUPIROCIN 2% OINT 22 GM TUBE TOP SCH ×2 (08:38→22:39)
[2020-04-26] MEDS: FOLIC ACID 1 MG TABLET PO SCH (08:38)
[2020-04-26] MEDS: SODIUM BICARBONATE 650 MG TABLET PO SCH ×2 (08:38→22:17)
[2020-04-26] MEDS: SODIUM HYPOCHLORITE 0.25% IRRIG 473 ML BOTTLE TOP SCH (08:39)
[2020-04-26] MEDS ORDERED: ALBUTEROL/IPRATROPIUM 3 ML NEB RESP TX ONE (11:17)
[2020-04-27] MEDS: NIFEdipine 10 MG CAPSULE PO SCH ×4 (01:00→17:11)
[2020-04-27] MEDS: ALBUTEROL/IPRATROPIUM 3 ML NEB RESP TX SCH ×4 (01:15→19:56)
[2020-04-27 05:04] LABS: Basophils % 0.1 % (0.0-0.8); Hematocrit 23.3 VOL% (42.0-52.0); Hemoglobin 7.4 GM/DL (14.0-18.0); Immature Granulocytes % 2.8 %; Immature Granulocytes Absolute 0.28 #; Lymphocytes # 0.7 10*3/uL (1.4-4.0); Lymphocytes % 6.9 % (21.2-54.2); Mean Corpuscular HGB Conc 31.8 GM/DL (32-36); Mean Corpuscular Volume 95.5 FL (87-102); Monocytes % 7.1 % (1.7-12.7); Neutrophils % 83.1 % (38.7-73.9); Platelet Count 219 T/CUMM (130-400); Red Blood Count 2.44 MC/CUMM (3.8-5.5); Red Cell Distribution Width 16.3 % (9.3-17.3)
[2020-04-27 05:41] LABS: Calcium 8.4 MG/DL (8.5-10.1); Osmolality,Calculated 294.5 MOS/KG (273-304)
[2020-04-27] MEDS: methylPREDNISolone SOD SUC 40 MG/1 ML VIAL IV SCH ×2 (06:28→17:31)
[2020-04-27] MEDS ORDERED: ALBUTEROL/IPRATROPIUM 3 ML NEB RESP TX ONE ×3 (07:04→22:35)
[2020-04-27] MEDS: SODIUM BICARBONATE 650 MG TABLET PO SCH ×2 (08:39→21:59)
[2020-04-27] MEDS: GABAPENTIN 300 MG CAPSULE PO SCH ×3 (08:39→21:59)
[2020-04-27] MEDS: FOLIC ACID 1 MG TABLET PO SCH (08:39)
[2020-04-27] MEDS: METOPROLOL TARTRATE 25 MG TABLET PO SCH ×2 (08:40→21:58)
[2020-04-27] MEDS: amLODIPine 10 MG TABLET PO SCH (08:40)
[2020-04-27] MEDS: MUPIROCIN 2% OINT 22 GM TUBE TOP SCH ×2 (08:41→22:00)
[2020-04-27] MEDS: PANTOPRAZOLE 40 MG VIAL IV SCH ×2 (08:41→21:50)
[2020-04-27] MEDS: SODIUM HYPOCHLORITE 0.25% IRRIG 473 ML BOTTLE TOP SCH (08:41)
[2020-04-27] MEDS: FUROSEMIDE 40 MG/4 ML VIAL IV SCH ×3 (08:41→21:53)
[2020-04-27] MEDS: minoxidiL 2.5 MG TABLET PO SCH ×2 (09:32→21:58)
[2020-04-28] MEDS: NIFEdipine 10 MG CAPSULE PO SCH ×2 (00:16→06:15)
[2020-04-28] MEDS: ALBUTEROL/IPRATROPIUM 3 ML NEB RESP TX SCH ×4 (01:50→19:18)
[2020-04-28] MEDS: methylPREDNISolone SOD SUC 40 MG/1 ML VIAL IV SCH ×2 (06:15→20:35)
[2020-04-28 06:57] LABS: Basophils % 0.2 % (0.0-0.8); Eosinophils % 0.2 % (0.00-10.9); Hematocrit 24.1 VOL% (42.0-52.0); Hemoglobin 7.7 GM/DL (14.0-18.0); Immature Granulocytes % 3.4 %; Immature Granulocytes Absolute 0.36 #; Lymphocytes # 0.7 10*3/uL (1.4-4.0); Lymphocytes % 6.3 % (21.2-54.2); Mean Corpuscular Volume 94.5 FL (87-102); Mean Platelet Volume 11.3 FL (9.6-12.0); Monocytes % 8.8 % (1.7-12.7); Neutrophils % 81.1 % (38.7-73.9); Platelet Count 239 T/CUMM (130-400); Red Blood Count 2.55 MC/CUMM (3.8-5.5); Red Cell Distribution Width 16.3 % (9.3-17.3); White Blood Count 10.6 T/CUMM (4-12)
[2020-04-28 07:16] LABS: Calcium 8.3 MG/DL (8.5-10.1); Osmolality,Calculated 300.4 MOS/KG (273-304)
[2020-04-28] MEDS ORDERED: ALBUTEROL/IPRATROPIUM 3 ML NEB RESP TX ONE (07:19)
[2020-04-28] MEDS: minoxidiL 2.5 MG TABLET PO SCH ×2 (10:00→20:36)
[2020-04-28] MEDS: SODIUM BICARBONATE 650 MG TABLET PO SCH ×2 (10:00→20:35)
[2020-04-28] MEDS: cloNIDine 0.1 MG TABLET PO PRN (10:01)
[2020-04-28] MEDS: METOPROLOL TARTRATE 25 MG TABLET PO SCH ×2 (10:01→20:35)
[2020-04-28] MEDS: FOLIC ACID 1 MG TABLET PO SCH (10:01)
[2020-04-28] MEDS: amLODIPine 10 MG TABLET PO SCH (10:01)
[2020-04-28] MEDS: GABAPENTIN 300 MG CAPSULE PO SCH ×3 (10:01→20:35)
[2020-04-28] MEDS: FUROSEMIDE 40 MG/4 ML VIAL IV SCH ×3 (10:02→20:35)
[2020-04-28] MEDS: PANTOPRAZOLE 40 MG VIAL IV SCH (10:02)
[2020-04-28] MEDS: ACETAMINOPHEN 325 MG TABLET PO PRN (10:02)
[2020-04-28] MEDS: SODIUM HYPOCHLORITE 0.25% IRRIG 473 ML BOTTLE TOP SCH (10:04)
[2020-04-28] MEDS: MUPIROCIN 2% OINT 22 GM TUBE TOP SCH ×2 (10:04→20:46)
[2020-04-28] MEDS: cloNIDine 0.3 MG/24 HR PATCH TRANSDERM SCH (12:17)
[2020-04-28] MEDS: PANTOPRAZOLE 40 MG TABLET PO SCH (20:36)
[2020-04-28] MEDS: LACTOBACILLUS RHAMNOSUS GG CAPSULE PO SCH (20:36)
[2020-04-29] MEDS: ALBUTEROL/IPRATROPIUM 3 ML NEB RESP TX SCH ×4 (00:20→19:08)
[2020-04-29 06:28] LABS: Basophils % 0.3 % (0.0-0.8); Eosinophils % 0.3 % (0.00-10.9); Hematocrit 24.5 VOL% (42.0-52.0); Immature Granulocytes % 2.2 %; Immature Granulocytes Absolute 0.25 #; Lymphocytes # 0.5 10*3/uL (1.4-4.0); Lymphocytes % 4.1 % (21.2-54.2); Mean Corpuscular HGB Conc 32.7 GM/DL (32-36); Mean Corpuscular Volume 93.5 FL (87-102); Mean Platelet Volume 10.9 FL (9.6-12.0); Monocytes % 6.3 % (1.7-12.7); Neutrophils % 86.8 % (38.7-73.9); Platelet Count 259 T/CUMM (130-400); Red Blood Count 2.62 MC/CUMM (3.8-5.5); Red Cell Distribution Width 16.2 % (9.3-17.3); White Blood Count 11.3 T/CUMM (4-12)
[2020-04-29 06:49] LABS: Calcium 8.9 MG/DL (8.5-10.1); Osmolality,Calculated 296.5 MOS/KG (273-304)
[2020-04-29 06:54] LABS: Hypochromasia 2+; Lymphocytes 7 % (20-55); Platelet Estimate Adequate; Segmented Neutrophils 89 % (50-85); Total Cells Counted 100
[2020-04-29] MEDS: LACTOBACILLUS RHAMNOSUS GG CAPSULE PO SCH ×2 (09:28→20:29)
[2020-04-29] MEDS: PANTOPRAZOLE 40 MG TABLET PO SCH ×2 (09:28→20:29)
[2020-04-29] MEDS: amLODIPine 10 MG TABLET PO SCH (09:29)
[2020-04-29] MEDS: GABAPENTIN 300 MG CAPSULE PO SCH ×3 (09:29→20:29)
[2020-04-29] MEDS: FOLIC ACID 1 MG TABLET PO SCH (09:29)
[2020-04-29] MEDS: METOPROLOL TARTRATE 25 MG TABLET PO SCH ×2 (09:29→20:33)
[2020-04-29] MEDS: SODIUM BICARBONATE 650 MG TABLET PO SCH ×2 (09:29→20:28)
[2020-04-29] MEDS: FUROSEMIDE 40 MG/4 ML VIAL IV SCH ×3 (09:30→20:28)
[2020-04-29] MEDS: minoxidiL 2.5 MG TABLET PO SCH ×2 (09:30→20:29)
[2020-04-29] MEDS: methylPREDNISolone SOD SUC 40 MG/1 ML VIAL IV SCH ×2 (09:30→20:28)
[2020-04-29] MEDS: ACETAMINOPHEN 325 MG TABLET PO PRN (09:36)
[2020-04-29] MEDS: SODIUM HYPOCHLORITE 0.25% IRRIG 473 ML BOTTLE TOP SCH (09:36)
[2020-04-29] MEDS: MUPIROCIN 2% OINT 22 GM TUBE TOP SCH ×2 (09:37→20:29)
[2020-04-29 19:26] LABS: Metanephrine/Creatinine Ratio 167 mcg/g Cr; Normetanephrine/Creat Ratio 664 mcg/g Cr; Total Metaneph/Creat Rati 831 mcg/g Cr
[2020-04-30] MEDS: ALBUTEROL/IPRATROPIUM 3 ML NEB RESP TX SCH ×4 (00:45→19:01)
[2020-04-30 04:57] LABS: Basophils % 0.3 % (0.0-0.8); Eosinophils % 0.1 % (0.00-10.9); Hematocrit 24.6 VOL% (42.0-52.0); Hemoglobin 8.1 GM/DL (14.0-18.0); Immature Granulocytes % 2.5 %; Immature Granulocytes Absolute 0.26 #; Lymphocytes # 0.4 10*3/uL (1.4-4.0); Lymphocytes % 3.6 % (21.2-54.2); Mean Corpuscular HGB Conc 32.9 GM/DL (32-36); Mean Corpuscular Volume 91.1 FL (87-102); Mean Platelet Volume 11.1 FL (9.6-12.0); Monocytes % 4.4 % (1.7-12.7); Neutrophils % 89.1 % (38.7-73.9); Platelet Count 284 T/CUMM (130-400); Red Cell Distribution Width 16.1 % (9.3-17.3); White Blood Count 10.4 T/CUMM (4-12)
[2020-04-30 05:17] LABS: Calcium 8.7 MG/DL (8.5-10.1); Osmolality,Calculated 289.2 MOS/KG (273-304)
[2020-04-30 05:20] LABS: Band Neutrophils 2 % (0-10); Eosinophils 1 % (0-10); Lymphocytes 3 % (20-55); Platelet Estimate Adequate; Segmented Neutrophils 90 % (50-85); Total Cells Counted 100
[2020-04-30 05:21] LABS: Hypochromasia 2+; Microcytosis Slight
[2020-04-30 05:24] LABS: Calcium 8.7 MG/DL (8.5-10.1); Osmolality,Calculated 294.8 MOS/KG (273-304)
[2020-04-30] MEDS: METOPROLOL TARTRATE 25 MG TABLET PO SCH ×2 (09:24→22:28)
[2020-04-30] MEDS: amLODIPine 10 MG TABLET PO SCH (09:24)
[2020-04-30] MEDS: FOLIC ACID 1 MG TABLET PO SCH (09:24)
[2020-04-30] MEDS: minoxidiL 2.5 MG TABLET PO SCH ×2 (09:24→22:28)
[2020-04-30] MEDS: LACTOBACILLUS RHAMNOSUS GG CAPSULE PO SCH ×2 (09:24→22:28)
[2020-04-30] MEDS: FUROSEMIDE 40 MG/4 ML VIAL IV SCH ×3 (09:25→22:27)
[2020-04-30] MEDS: GABAPENTIN 300 MG CAPSULE PO SCH ×3 (09:25→22:28)
[2020-04-30] MEDS: methylPREDNISolone SOD SUC 40 MG/1 ML VIAL IV SCH ×2 (09:26→22:27)
[2020-04-30] MEDS: PANTOPRAZOLE 40 MG TABLET PO SCH ×2 (09:35→22:28)
[2020-04-30] MEDS: SODIUM BICARBONATE 650 MG TABLET PO SCH ×2 (09:35→22:28)
[2020-04-30] MEDS: MUPIROCIN 2% OINT 22 GM TUBE TOP SCH ×2 (09:36→23:00)
[2020-04-30] MEDS: SODIUM HYPOCHLORITE 0.25% IRRIG 473 ML BOTTLE TOP SCH (10:05)
[2020-04-30] MEDS: metOLazone 5 MG TABLET PO SCH (14:59)
[2020-05-01] MEDS: ALBUTEROL/IPRATROPIUM 3 ML NEB RESP TX SCH ×4 (01:42→19:02)
[2020-05-01 07:37] LABS: Basophils % 0.2 % (0.0-0.8); Eosinophils % 0.1 % (0.00-10.9); Hematocrit 26.4 VOL% (42.0-52.0); Hemoglobin 8.6 GM/DL (14.0-18.0); Immature Granulocytes % 2.3 %; Immature Granulocytes Absolute 0.23 #; Lymphocytes # 0.3 10*3/uL (1.4-4.0); Lymphocytes % 3.1 % (21.2-54.2); Mean Corpuscular HGB Conc 32.6 GM/DL (32-36); Mean Corpuscular Volume 92.3 FL (87-102); Mean Platelet Volume 11.2 FL (9.6-12.0); Monocytes % 3.5 % (1.7-12.7); Neutrophils % 90.8 % (38.7-73.9); Platelet Count 292 T/CUMM (130-400); Red Blood Count 2.86 MC/CUMM (3.8-5.5); Red Cell Distribution Width 16.7 % (9.3-17.3)
[2020-05-01 07:59] LABS: Lymphocytes 4 % (20-55); Platelet Estimate Adequate; Segmented Neutrophils 93 % (50-85); Total Cells Counted 100
[2020-05-01 08:00] LABS: Hypochromasia 1+; Microcytosis Slight
[2020-05-01 08:01] LABS: Osmolality,Calculated 292.2 MOS/KG (273-304)
[2020-05-01] MEDS: SODIUM BICARBONATE 650 MG TABLET PO SCH ×2 (09:29→21:58)
[2020-05-01] MEDS: METOPROLOL TARTRATE 25 MG TABLET PO SCH ×2 (09:30→21:58)
[2020-05-01] MEDS: LACTOBACILLUS RHAMNOSUS GG CAPSULE PO SCH ×2 (09:30→22:01)
[2020-05-01] MEDS: minoxidiL 2.5 MG TABLET PO SCH ×2 (09:30→22:00)
[2020-05-01] MEDS: metOLazone 5 MG TABLET PO SCH (09:30)
[2020-05-01] MEDS: amLODIPine 10 MG TABLET PO SCH (09:30)
[2020-05-01] MEDS: FOLIC ACID 1 MG TABLET PO SCH (09:30)
[2020-05-01] MEDS: methylPREDNISolone SOD SUC 40 MG/1 ML VIAL IV SCH ×2 (09:31→21:51)
[2020-05-01] MEDS: FUROSEMIDE 40 MG/4 ML VIAL IV SCH ×3 (09:31→21:52)
[2020-05-01] MEDS: MUPIROCIN 2% OINT 22 GM TUBE TOP SCH ×2 (09:59→22:01)
[2020-05-01] MEDS: SODIUM HYPOCHLORITE 0.25% IRRIG 473 ML BOTTLE TOP SCH (10:00)
[2020-05-01] MEDS: PANTOPRAZOLE 40 MG TABLET PO SCH ×2 (10:06→22:00)
[2020-05-01] MEDS: GABAPENTIN 300 MG CAPSULE PO SCH ×3 (10:06→21:59)
[2020-05-01] MEDS: ACETAMINOPHEN 325 MG TABLET PO PRN (21:56)
[2020-05-01] MEDS: THIAMINE 100 MG TABLET PO SCH (22:01)
[2020-05-02] MEDS: ALBUTEROL/IPRATROPIUM 3 ML NEB RESP TX SCH ×2 (00:54→07:16)
[2020-05-02 06:25] LABS: Calcium 8.8 MG/DL (8.5-10.1); Osmolality,Calculated 302.7 MOS/KG (273-304)
[2020-05-02] MEDS: LACTOBACILLUS RHAMNOSUS GG CAPSULE PO SCH (10:05)
[2020-05-02] MEDS: SODIUM BICARBONATE 650 MG TABLET PO SCH (10:05)
[2020-05-02] MEDS: GABAPENTIN 300 MG CAPSULE PO SCH (10:05)
[2020-05-02] MEDS: METOPROLOL TARTRATE 25 MG TABLET PO SCH (10:06)
[2020-05-02] MEDS: minoxidiL 2.5 MG TABLET PO SCH (10:06)
[2020-05-02] MEDS: amLODIPine 10 MG TABLET PO SCH (10:06)
[2020-05-02] MEDS: metOLazone 5 MG TABLET PO SCH (10:06)
[2020-05-02] MEDS: THIAMINE 100 MG TABLET PO SCH (10:06)
[2020-05-02] MEDS: FOLIC ACID 1 MG TABLET PO SCH (10:07)
[2020-05-02] MEDS: PANTOPRAZOLE 40 MG TABLET PO SCH (10:07)
[2020-05-02] MEDS: FUROSEMIDE 40 MG/4 ML VIAL IV SCH (10:07)
[2020-05-02] MEDS: SODIUM HYPOCHLORITE 0.25% IRRIG 473 ML BOTTLE TOP SCH (10:07)
[2020-05-02] MEDS: methylPREDNISolone SOD SUC 40 MG/1 ML VIAL IV SCH (10:08)
[2020-05-02] MEDS: MUPIROCIN 2% OINT 22 GM TUBE TOP SCH (10:09)
[2020-05-02] MEDS: ACETAMINOPHEN 325 MG TABLET PO PRN (11:00)
[2020-05-02 11:31] VITALS: BP 170/74
== END 2020-05-02 12:48 | DRG 987 ==
LOC: N.ED 08:44 → SUATTDRO 14:56 → N.EDINP 14:56 → N.3E 17:00 → N.CC 04-15 12:12 → N.5E 04-26 11:03
PROVIDERS: ADMIT Internal Medicine; ATTEND Internal Medicine